=== PATIENT | male | born 1955 | race African-American/Black ===

== ENCOUNTER 2017-05-28 09:40 | Emergency (ER) | payer MEDICARE ==
[2017-05-28] MEDS ORDERED: IV NORMAL SALINE 1,000ML 1,000 ML IV SCH (09:57)
[2017-05-28] MEDS ORDERED: ONDANSETRON PF 4 MG/2 ML VIAL. IV ONE (10:00)
[2017-05-28] MEDS ORDERED: FAMOTIDINE 20 MG/2 ML VIAL IVP ONE (10:00)
--- NOTE | 2017-05-28 10:13 | PHYS DOC ---
Past History Past Medical History: CVA, Diabetes Additional Past Medical Histor: ulcerative colitis Adult General Chief Complaint Chief Complaint: NAUSEA/VOMITING/DIARRHEA HPI HPI Patient is a 62 year old male who presents with nausea and vomiting. Patient was brought to the emergency department from his half-way due to his symptoms. Patient's symptoms have been present starting today. The patient has history of CVA with right-sided hemiplegia and is unable to provide history due to aphasia as a result of his CVA. Patient has been running fever per half-way. Patient has not received any medications for symptoms. Patient has had numerous episodes of vomiting since breakfast this morning. Review of Systems Review of Systems Unable to obtain from patient due to aphasia Current Medications Current Medications Current Medications Medications (Trade) Dose Ordered Sig/Joselito Start Time Stop Time Status Last Admin Dose Admin Famotidine (Pepcid) 20 mg 1X ONCE 05/28/17 10:00 05/28/17 10:01 UNV Ondansetron HCl (Zofran) 4 mg 1X ONCE 05/28/17 10:00 05/28/17 10:01 UNV Sodium Chloride 1,000 ml @ 1,000 mls/hr Q1H 05/28/17 09:57 05/28/17 10:56 UNV Allergies Allergies Allergies Coded Allergies Type Severity Reaction Last Updated Verified No Known Drug Allergies 05/28/17 No Physical Exam Physical Exam Constitutional: Alert, febrile, aphasic, appears ill. [] HENT: Normocephalic, atraumatic, bilateral external ears normal, oropharynx moist, no oral exudates, nose normal. [] Eyes: PERRLA, EOMI, conjunctiva normal, no discharge. [] Neck: Normal range of motion, no tenderness, supple, no stridor. [] Cardiovascular:Heart rate regular rhythm, no murmur [] Lungs & Thorax: Bilateral breath sounds clear to auscultation [] Abdomen: Bowel sounds normal, soft, no tenderness, no masses, no pulsatile masses. [] Skin: Warm, dry, no erythema, no rash. [] Back: No tenderness, no CVA tenderness. [] Extremities: No tenderness, no cyanosis, no clubbing, ROM intact, no edema. [] Neurologic: Alert, afebrile, right-sided hemiplegia, follows commands. [] Current Patient Data Vital Signs Vital Signs Date Time Temp Pulse Resp B/P (MAP) Pulse Ox O2 Delivery O2 Flow Rate FiO2 05/28/17 10:05 99.3 94 18 94 Room Air Lab Results Laboratory Tests Test 05/28/17 10:12 White Blood Count 11.3 x10^3/uL Red Blood Count 1.27 x10^6/uL Hemoglobin 4.1 g/dL Hematocrit 12.5 % Mean Corpuscular Volume 99 fL Mean Corpuscular Hemoglobin 32 pg Mean Corpuscular Hemoglobin Concent 33 g/dL Red Cell Distribution Width 23.6 % Platelet Count 234 x10^3/uL Neutrophils (%) (Auto) 74 % Lymphocytes (%) (Auto) 18 % Monocytes (%) (Auto) 7 % Eosinophils (%) (Auto) 0 % Basophils (%) (Auto) 1 % Neutrophils # (Auto) 8.4 x10^3uL Lymphocytes # (Auto) 2.1 x10^3/uL Monocytes # (Auto) 0.8 x10^3/uL Eosinophils # (Auto) 0.0 x10^3/uL Basophils # (Auto) 0.1 x10^3/uL Sodium Level 145 mmol/L Potassium Level 3.9 mmol/L Chloride Level 108 mmol/L Carbon Dioxide Level 28 mmol/L Anion Gap 9 Blood Urea Nitrogen 77 mg/dL Creatinine 1.8 mg/dL Estimated GFR (Cockcroft-Gault) 46.2 BUN/Creatinine Ratio 43 Glucose Level 240 mg/dL Lactic Acid Level 1.9 mmol/L Calcium Level 8.5 mg/dL Total Bilirubin 0.4 mg/dL Aspartate Amino Transf (AST/SGOT) 28 U/L Alanine Aminotransferase (ALT/SGPT) 32 U/L Alkaline Phosphatase 49 U/L Total Protein 5.8 g/dL Albumin 3.2 g/dL Albumin/Globulin Ratio 1.2 Lipase 98 U/L Current Medications Medications (Trade) Dose Ordered Sig/Joselito Route PRN Reason Start Time Stop Time Status Last Admin Dose Admin Sodium Chloride 1,000 ml @ 1,000 mls/hr Q1H IV 05/28/17 09:57 05/28/17 11:32 DC 05/28/17 09:57 Ondansetron HCl (Zofran) 4 mg 1X ONCE IV 05/28/17 10:00 05/28/17 11:32 DC 05/28/17 10:00 Famotidine (Pepcid) 20 mg 1X ONCE IVP 05/28/17 10:00 05/28/17 11:32 DC 05/28/17 10:00 EKG EKG Interpreted by me: Heart rate 91, sinus rhythm, right bundle branch block, no acute ST/T-wave abnormalities present[] Radiology/Procedures Radiology/Procedures [address] [address] IMAGING REPORT Signed PATIENT: ÁNGEL JONES ACCOUNT: [id number] : 1955 LOCATION: ER AGE: 62 SEX: M EXAM STATUS: REG ER ORD. PHYSICIAN: NATACHA SAMANIEGO MD REASON: abdominal pain, vomiting PROCEDURE: CT ABDOMEN PELVIS WO CONTRAST Examination: CT of the abdomen pelvis without contrast History: History of abdominal pain, vomiting, anemia. Comparison: None available Technique: Axial CT images of the abdomen pelvis were performed without contrast. Coronal and sagittal reformats are performed. PQRS Compliance Statement: One or more of the following individualized dose reduction techniques were utilized for this examination: 1. Automated exposure control 2. Adjustment of the mA and/or kV according to patient size 3. Use of iterative reconstruction technique. Findings: The visualized bibasal lungs grossly appears unremarkable. No evidence of free air identified in the abdomen. The visualized noncontrasted liver, spleen, adrenals grossly appears unremarkable. The gallbladder is mildly distended. The stomach is mildly distended. The visualized pancreas grossly appears unremarkable. The small bowel is nondilated. The appendix is normal. Feces and gas noted in the colon throughout. The urinary bladder is mildly distended. No evidence of intrarenal collecting system calculus or hydronephrosis. There is minimal left perinephric fat stranding identified. Moderate aortic atherosclerosis. The infrarenal abdominal aorta measures 3.3 cm in transverse dimension likely mild focal ectasia. Mild aneurysmal change of the left common iliac artery is identified measuring 2.2 cm in diameter. Moderate degenerative changes identified in the visualized thoracal lumbar spine. Impression: 1. Minimal nonspecific perinephric fat stranding identified about the left kidney. Nephritis is not completely excluded however considered less likely. Recommend correlation with urine analysis. 2. Moderate amount of stool identified in the rectum. 3. Mild aneurysmal change left common iliac artery. Focal ectasia infrarenal abdominal aorta. DICTATED AND SIGNED BY: KATYA CRENSHAW MD DATE: 05/28/17 1116 CC: NATACHA SAMANIEGO MD; SAMMI DRAPER MD ~ [place] [address] IMAGING REPORT Signed PATIENT: ÁNGEL JONES ACCOUNT: [id number] : 1955 LOCATION: ER AGE: 62 SEX: M EXAM STATUS: REG ER ORD. PHYSICIAN: NATACHA SAMANIEGO MD REASON: abdominal pain, vomiting PROCEDURE: ACUTE ABDOMEN SERIES EXAM: Two view abdomen with one view chest HISTORY: Abdominal pain and vomiting. COMPARISON: 10/10/2011. FINDINGS: A frontal view of the chest and supine/upright views of the abdomen are obtained. There are no confluent infiltrates. There is no pneumothorax or pleural effusion. The heart is mildly enlarged. There are atherosclerotic calcifications of the aorta. There is no pneumoperitoneum. There are no distended small bowel loops or significant air-fluid levels. There is gas distally. Lumbar degenerative disc disease is moderate. Hip osteoarthritis is mild on the right greater than left. IMPRESSION: 1. No confluent infiltrates. Mild cardiomegaly. 2. No evidence of obstruction. DICTATED AND SIGNED BY: GARY SMITH MD DATE: 05/28/17 1046 CC: NATACHA SAMANIEGO MD; SAMMI DRAPER MD ~ [] Course & Med Decision Making Course & Med Decision Making Pertinent Labs and Imaging studies reviewed. (See chart for details) The patient started on IV fluids, Zofran, and Pepcid in the emergency department. The patient was found to have a critically low hemoglobin level and started on crossmatched packed red blood cells in the emergency department. The patient's x-ray on my evaluation shows findings consistent with a possible sigmoid volvulus as the patient has a loop of distended large bowel with a coffee lundberg appearance. The CT scan also shows the same appearance though no comment is made specifically to this finding. Due to potential for sigmoid volvulus, the patient will need admission to a facility with both gastroenterology and general surgery capabilities. I spoke with Dr. Christie, hospitalist at [facility], who has agreed to accept care of patient in transfer. I also spoke with Dr. Oliva of general surgery who agreed to consult on patient in hospital. An additional consult was made to Dr. Biggs of gastroenterology to follow with patient in hospital. Patient will be transferred by [facility]. Dragon Disclaimer Dragon Disclaimer This chart was dictated in whole or in part using Voice Recognition software in a busy, high-work load, and often noisy Emergency Department environment. It may contain unintended and wholly unrecognized errors or omissions. Departure Departure: Impression: Primary Impression: Acute renal failure Additional Impressions: Nausea and vomiting Abdominal pain Symptomatic anemia History of CVA (cerebrovascular accident) Type 2 diabetes mellitus Disposition: SHT-TRM HOSP Condition: GUARDED Referrals: SAMMI DRAPER MD (PCP) Problem Qualifiers Primary Impression: Acute renal failure Acute renal failure type: unspecified Qualified Codes: N17.9 - Acute kidney failure, unspecified Additional Impressions: Nausea and vomiting Vomiting type: unspecified Vomiting Intractability: unspecified Qualified Codes: R11.2 - Nausea with vomiting, unspecified Abdominal pain Abdominal location: generalized Qualified Codes: R10.84 - Generalized abdominal pain Type 2 diabetes mellitus Diabetes mellitus complication status: with hyperglycemia Diabetes mellitus longterm insulin use: unspecified terminal carman insulin use status Qualified Codes: E11.65 - Type 2 diabetes mellitus with hyperglycemia NATACHA SAMANIEGO MD May 28, 2017 10:13
[2017-05-28 10:43] LABS: ALBUMIN 3.2 g/dL (3.4-5.0); ALBUMIN/GLOBULIN RATIO 1.2 (1.0-1.7); CALCIUM 8.5 mg/dL (8.5-10.1); CREATININE 1.8 mg/dL (0.7-1.3); GFR 46.2; POTASSIUM 3.9 mmol/L (3.5-5.1); TOTAL BILIRUBIN 0.4 mg/dL (0.2-1.0); TOTAL PROTEIN 5.8 g/dL (6.4-8.2)
[2017-05-28 10:49] LABS: BASO # 0.1 x10^3/uL (0.0-0.2); BASO % 1 % (0-3); EOS % 0 % (0-3); LYMPH # 2.1 x10^3/uL (1.0-4.8); LYMPH % 18 % (24-48); MEAN CORPUSCULAR HEMOGLOBIN 32 pg (25-35); MEAN CORPUSCULAR HGB CONC 33 g/dL (31-37); MEAN CORPUSCULAR VOLUME 99 fL (79-100); MONO # 0.8 x10^3/uL (0.0-1.1); MONO % 7 % (0-9); NEUT # 8.4 x10^3uL (1.8-7.7); NEUT % 74 % (31-73); PLATELET COUNT 234 x10^3/uL (140-400); RED BLOOD COUNT 1.27 x10^6/uL (4.30-5.70); RED CELL DISTRIBUTION WIDTH 23.6 % (11.5-14.5)
--- NOTE | 2017-05-28 10:50 | RAD ---
EXAM: Two view abdomen with one view chest HISTORY: Abdominal pain and vomiting. COMPARISON: 10/10/2011. FINDINGS: A frontal view of the chest and supine/upright views of the abdomen are obtained. There are no confluent infiltrates. There is no pneumothorax or pleural effusion. The heart is mildly enlarged. There are atherosclerotic calcifications of the aorta. There is no pneumoperitoneum. There are no distended small bowel loops or significant air-fluid levels. There is gas distally. Lumbar degenerative disc disease is moderate. Hip osteoarthritis is mild on the right greater than left. IMPRESSION: 1. No confluent infiltrates. Mild cardiomegaly. 2. No evidence of obstruction.
[2017-05-28 10:53] LABS: HEMATOCRIT 12.5 % (39.0-53.0); HEMOGLOBIN 4.1 g/dL (13.0-17.5); WHITE BLOOD COUNT 11.3 x10^3/uL (4.0-11.0)
--- NOTE | 2017-05-28 11:28 | RAD ---
Examination: CT of the abdomen pelvis without contrast History: History of abdominal pain, vomiting, anemia. Comparison: None available Technique: Axial CT images of the abdomen pelvis were performed without contrast. Coronal and sagittal reformats are performed. PQRS Compliance Statement: One or more of the following individualized dose reduction techniques were utilized for this examination: 1. Automated exposure control 2. Adjustment of the mA and/or kV according to patient size 3. Use of iterative reconstruction technique. Findings: The visualized bibasal lungs grossly appears unremarkable. No evidence of free air identified in the abdomen. The visualized noncontrasted liver, spleen, adrenals grossly appears unremarkable. The gallbladder is mildly distended. The stomach is mildly distended. The visualized pancreas grossly appears unremarkable. The small bowel is nondilated. The appendix is normal. Feces and gas noted in the colon throughout. The urinary bladder is mildly distended. No evidence of intrarenal collecting system calculus or hydronephrosis. There is minimal left perinephric fat stranding identified. Moderate aortic atherosclerosis. The infrarenal abdominal aorta measures 3.3 cm in transverse dimension likely mild focal ectasia. Mild aneurysmal change of the left common iliac artery is identified measuring 2.2 cm in diameter. Moderate degenerative changes identified in the visualized thoracal lumbar spine. Impression: 1. Minimal nonspecific perinephric fat stranding identified about the left kidney. Nephritis is not completely excluded however considered less likely. Recommend correlation with urine analysis. 2. Moderate amount of stool identified in the rectum. 3. Mild aneurysmal change left common iliac artery. Focal ectasia infrarenal abdominal aorta.
[2017-05-28 12:38] VITALS: BP 117/41
[2017-05-28 12:48] LABS: FECAL OB PT NEGATIVE (NEG)
[2017-05-28 12:53] VITALS: BP 131/69
[2017-05-28 13:08] VITALS: BP 129/79
[2017-05-28 13:33] VITALS: BP 129/79
[2017-05-28 13:37] VITALS: BP 121/60
--- NOTE | 2017-05-28 13:38 | EKG ---
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
[2017-05-28 13:51] LABS: BACTERIA,URINE 0 /HPF (0-FEW); BILIRUBIN,URINE NEG (NEG); CLARITY,URINE HAZY; COLOR,URINE YELLOW; GLUCOSE,URINE NEG (NEG); NITRITE,URINE NEG (NEG); RBC CASTS,URINE OCC /HPF; SQUAMOUS EPITHELIAL CELL,UR OCC /LPF; UROBILINOGEN,URINE 0.2 mg/dL (0.2 mg/dL); WBC,URINE 0 /HPF (0-4)
[2017-05-28 14:00] LABS: % BANDS 5 % (0-9); % LYMPHS 17 % (24-48); % MONOS 3 % (0-10); % SEGS 75 % (35-66); NUCLEATED RBC 26; PLATELET CLUMP PRESENT; PLT ESTIMATE ADEQUATE (ADEQUATE)
[2017-05-28 14:01] LABS: ANISOCYTOSIS MARKED; MICROCYTOSIS MOD; POLYCHROMASIA SLIGHT
[2017-05-28 14:02] LABS: OVALOCYTES FEW; SPHEROCYTES OCC
== END 2017-05-28 13:49 | disposition short-term general hospital (02) ==
LOC: ER 09:40
DX: N17.9 Acute kidney failure, unspecified (principal); R10.84 Generalized abdominal pain; E11.65 Type 2 diabetes mellitus with hyperglycemia; R11.2 Nausea with vomiting, unspecified; Z86.73 Personal history of transient ischemic attack (TIA), and cerebral infarction without residual deficits
CPT/HCPCS: 36415; 74022; 74176; 80053; 81001; 82274; 83605; 83690; 85007; 85025; 86850; 86900; 86901; 86920; 87040; 93005; 96361; 96374; 96375; 99285; J2405; P9016; S0028; J7030

== ENCOUNTER 2021-01-19 19:46 | Inpatient (IN) | payer MEDICARE, MEDICAID ==
[~2021-01-19] VITALS: Ht 188 cm; Wt 97.3 kg
[2021-01-19 21:39] LABS: BASO % 1 % (0-3); EOS # 0.1 x10^3/uL (0.0-0.7); EOS % 1 % (0-3); HEMATOCRIT 35.2 % (39.0-53.0); HEMOGLOBIN 11.5 g/dL (13.0-17.5); LYMPH # 0.9 x10^3/uL (1.0-4.8); LYMPH % 14 % (24-48); MEAN CORPUSCULAR HEMOGLOBIN 28 pg (25-35); MEAN CORPUSCULAR HGB CONC 33 g/dL (31-37); MEAN CORPUSCULAR VOLUME 84 fL (79-100); MONO # 0.3 x10^3/uL (0.0-1.1); MONO % 6 % (0-9); NEUT # 4.8 x10^3uL (1.8-7.7); NEUT % 78 % (31-73); PLATELET COUNT 166 x10^3/uL (140-400); RED BLOOD COUNT 4.17 x10^6/uL (4.30-5.70); RED CELL DISTRIBUTION WIDTH 18.4 % (11.5-14.5); WHITE BLOOD COUNT 6.1 x10^3/uL (4.0-11.0)
[2021-01-19 21:41] LABS: CALCIUM 8.5 mg/dL (8.5-10.1); CREATININE 1.4 mg/dL (0.7-1.3); GFR 61.2
--- NOTE | 2021-01-19 21:53 | PHYS DOC ---
Past History Past Medical History: CHF, CVA, Diabetes, High Cholesterol, UTI Additional Past Medical Histor: ulcerative colitis (ROCKY LARA APRN) Past Surgical History: No Surgical History (ROCKY LARA APRN) Alcohol Use: None Drug Use: None (ROCKY LARA APRN) Adult General Chief Complaint Chief Complaint: SHORTNESS OF BREATH HPI HPI Patient is a 65-year-old male presents to the emergency department from [facility] with a chief complaint of low O2 sat. Patient states that he has been short of breath for the past week. Patient denies any chest pains. Patient denies any nausea vomiting shortness of breath or abdominal pains. Patient has a history of acute on chronic respiratory failure with hypoxia, old CVA with expressive aphasia and right-sided extremity deficits with muscle contractures, type 2 diabetes, hyperlipidemia, GERD, combined systolic and diastolic heart failure, chronic urinary tract infections, essential hypertension, major depressive disorder, ulcerative colitis, lack of coord ination. Patient denies any other physical complaints or physical concerns (ROCKY LARA APRN) Review of Systems Review of Systems 14 body systems of review of systems have been reviewed. See HPI for pertinent positives and negative responses, otherwise all other systems are negative, nonpertinent or noncontributory. (ROCKY LARA APRN) Allergies Allergies Allergies Coded Allergies Type Severity Reaction Last Updated Verified No Known Drug Allergies 05/28/17 No (ROCKY LARA APRN) Physical Exam Physical Exam Constitutional: Well developed, well nourished, no acute distress, non-toxic appearance. 65-year-old male no apparent distress. Patient is in no respiratory distress. HENT: Normocephalic, atraumatic, bilateral external ears normal, oropharynx moist, no oral exudates, nose normal. Eyes: PERRLA, EOMI, conjunctiva normal, no discharge. Neck: Normal range of motion, no tenderness, supple, no stridor. Cardiovascular:Heart rate regular rhythm, no murmur. Lungs & Thorax: Bilateral breath sounds clear to auscultation no adventitious lung sounds of the upper lobes, diminished bilateral lower lobes. Abdomen: Bowel sounds normal, soft, no tenderness, no masses, no pulsatile masses. Skin: Warm, dry, no erythema, no rash. Back: No tenderness, no CVA tenderness. Extremities: No tenderness, no cyanosis, no clubbing, ROM intact, no edema. E xtremity contractures to the right upper and lower extremity. Neurologic: Alert and oriented X 3, normal motor function, normal sensory function, no focal deficits noted. Patient answers 1-2 word sentences related to history of aphasia. Psychologic: Affect normal, judgement normal, mood normal. (ROCKY LARA APRN) Current Patient Data Vital Signs Vital Signs Date Time Temp Pulse Resp B/P (MAP) Pulse Ox O2 Delivery O2 Flow Rate FiO2 01/19/21 19:48 97.5 79 18 154/85 (108) 95 Room Air Lab Results Laboratory Tests Test 01/19/21 21:05 White Blood Count 6.1 x10^3/uL (4.0-11.0) Red Blood Count 4.17 x10^6/uL (4.30-5.70) L Hemoglobin 11.5 g/dL (13.0-17.5) L Hematocrit 35.2 % (39.0-53.0) L Mean Corpuscular Volume 84 fL (79-100) Mean Corpuscular Hemoglobin 28 pg (25-35) Mean Corpuscular Hemoglobin Concent 33 g/dL (31-37) Red Cell Distribution Width 18.4 % (11.5-14.5) H Platelet Count 166 x10^3/uL (140-400) Neutrophils (%) (Auto) 78 % (31-73) H Lymphocytes (%) (Auto) 14 % (24-48) L Monocytes (%) (Auto) 6 % (0-9) Eosinophils (%) (Auto) 1 % (0-3) Basophils (%) (Auto) 1 % (0-3) Neutrophils # (Auto) 4.8 x10^3uL (1.8-7.7) Lymphocytes # (Auto) 0.9 x10^3/uL (1.0-4.8) L Monocytes # (Auto) 0.3 x10^3/uL (0.0-1.1) Eosinophils # (Auto) 0.1 x10^3/uL (0.0-0.7) Basophils # (Auto) 0.0 x10^3/uL (0.0-0.2) D-Dimer (Meli) 0.78 mg/L (0.00-0.50) H Sodium Level 143 mmol/L (136-145) Potassium Level 4.0 mmol/L (3.5-5.1) Chloride Level 105 mmol/L (98-107) Carbon Dioxide Level 29 mmol/L (21-32) Anion Gap 9 (6-14) Blood Urea Nitrogen 18 mg/dL (8-26) Creatinine 1.4 mg/dL (0.7-1.3) H Estimated GFR (Cockcroft-Gault) 61.2 BUN/Creatinine Ratio 13 (6-20) Glucose Level 161 mg/dL (70-99) H Lactic Acid Level 2.3 mmol/L (0.4-2.0) H Calcium Level 8.5 mg/dL (8.5-10.1) Total Bilirubin Pending Aspartate Amino Transferase (AST) Pending Alanine Aminotransferase (ALT) Pending Alkaline Phosphatase Pending Troponin I Quantitative < 0.017 ng/mL (0-0.055) Total Protein Pending Albumin Pending Albumin/Globulin Ratio Pending (ROCKY LARA APRN) EKG EKG EKG performed at 2157 by house respiratory therapy staff shows a heart rate of 82 bpm, no discernible P wave, QTc interval 0.464, no acute STEMI, no ischemia, no ACS appreciated, EKG interpreted by ED attending physician Dr. Hess. (ROCKY LARA APRN) Radiology/Procedures Radiology/Procedures PATIENT: ÁNGEL JONES ACCOUNT: [id number] : 1955 LOCATION: ER AGE: 65 SEX: M EXAM STATUS: REG ER ORD. PHYSICIAN: ROCKY LARA APRN REASON: SHORT OF BREATH PROCEDURE: CHEST AP ONLY AP chest x-ray HISTORY: Shortness of breath. COMPARISON: Chest x-ray May 28, 2017 FINDINGS: Marked enlarged cardiac silhouette has increased in size the prior x- rays, this may indicate progressive cardiomegaly, or cardiomegaly with sup erimposed pericardial effusion. No pneumothorax. Prominent epicardial fat pads. There may be a tiny left pleural effusion along the diaphragm blunting the angle. There are bilateral lower lobe and right middle lobe opacities and a mild right pleural effusion obscuring the diaphragm. IMPRESSION: 1. Mild right layering left pleural effusion. Opacities of the lung bases may be pulmonary edema. Superimposed pneumonia not excluded. 2. Marked enlarged cardiac silhouette has increased in size from x-rays in 2017, this could indicate progressive cardiomegaly with dilated cardiomyopathy since that time, versus a superimposed pericardial effusion. Electronically signed by: Suzanne Sawyer MD (01/19/2021 10:01 PM) [employer] [employer] DICTATED AND SIGNED BY: SUZANNE SAWYER MD DATE: 01/19/212157 CC: ROCKY LARA APRN; SAMMI DRAPER MD ~MTH0 0 (ROCKY LARA APRN) Heart Score C/O Chest Pain: No Risk Factors: Risk Factors: DM, Current or recent (<one month) smoker, HTN, HLP, family history of CAD, obesity. Risk Scores: Risk Factors: DM, Current or recent (<one month) smoker, HTN, HLP, family history of CAD, obesity. (ROCKY LARA APRN) Course & Med Decision Making Course & Med Decision Making Pertinent Labs and Imaging studies reviewed. (See chart for details) 65-year-old male, vital signs reviewed, presents emergency department chief complaint of shortness of breath without cough or fever for the past week. [facility] Physical examination concerning for possible infectious pulmonary process, a chest x-ray, CBC, CMP, EKG and troponin ordered. Patient's lactic acid elevated at 2.3, chest x-ray concerning for pneumonia, will order blood cultures x2, 1 g Rocephin IV, 500 mg azithromycin IV. Patient's D-dimer elevated at 0.78, will order CT angio chest to rule out pulmonary emboli. ABG ordered. End of shift report given to ED attending physician Dr. Hess, Dr. Hess has assumed patient care at this time. (ROCKY LARA APRN) Course & Med Decision Making Patient care handed off to me at checkout. Patient with a week of shortness of breath. EKG with a rate of 82, QRS 112, QTc of 464, no STEMI but abnormal. Creatinine elevated. D-dimer elevated. Lactate with mild elevation. CT of the chest with left pleural effusion with probable combination pulmonary edema and superimposed pneumonia with cardiomegaly. Bedside ultrasound showing cardiomegaly with no significant pericardial effusion. Discussed all findings with patient and recommended admission to the hospital for continued evaluation and treatment of his pneumonia and new oxygen requirement. Patient grateful, verbalized understanding and agreed with plan of admission. (CHERELLE HESS MD) Dragon Disclaimer Dragon Disclaimer This electronic medical record was generated, in whole or in part, using a voice recognition dictation system. (ROCKY LARA APRN) Departure Departure: Impression: Primary Impression: Shortness of breath Additional Impressions: Pneumonia Pleural effusion JONI (acute kidney injury) Disposition: 09 ADMITTED INPATIENT Admitting Physician: Shola Amaya (CHERELLE HESS MD) Condition: IMPROVED Referrals: SAMMI DRAPER MD (PCP) Problem Qualifiers ROCKY LARA APRN January 19, 2021 21:53 CHERELLE HESS MD January 19, 2021 23:18
[2021-01-19 21:55] LABS: ALBUMIN 3.5 g/dL (3.4-5.0); ALBUMIN/GLOBULIN RATIO 0.9 (1.0-1.7); TOTAL PROTEIN 7.3 g/dL (6.4-8.2)
--- NOTE | 2021-01-19 22:03 | RAD ---
AP chest x-ray HISTORY: Shortness of breath. COMPARISON: Chest x-ray May 28, 2017 FINDINGS: Marked enlarged cardiac silhouette has increased in size the prior x-rays, this may indicat e progressive cardiomegaly, or cardiomegaly with superimposed pericardial effusion. No pneumothorax. Prominent epicardial fat pads. There may be a tiny left pleural effusion along the diaphragm blunting the angle. There are bilateral lower lobe and right middle lobe opacities and a mild right pleural e ffusion obscuring the diaphragm. IMPRESSION: 1. Mild right layering left pleural effusion. Opacities of the lung bases may be pulmonary edema. Sup erimposed pneumonia not excluded. 2. Marked enlarged cardiac silhouette has increased in size from x-rays in 2017, this could indicate progressive cardiomegaly with dilated cardiomyopathy since that time, versus a superimposed pericardi al effusion. Electronically signed by: Aron Sawyer MD (01/19/2021 10:01 PM) [facility]
[2021-01-19 22:19] LABS: BGAS PH 7.36 (7.35-7.46)
[2021-01-19] MEDS ORDERED: AZITHROMYCIN 500 MG in IV NORMAL SALINE 250ML 250 ML IV ONE (22:30)
[2021-01-19] MEDS ORDERED: CONTRAST GIVEN. MC PRN (22:30)
[2021-01-19] MEDS ORDERED: IV NORMAL SALINE 250ML 250 ML ONE (22:42)
[2021-01-19] MEDS ORDERED: cefTRIAXone SODIUM 1 GM VIAL ONE (22:42)
[2021-01-19] MEDS ORDERED: IV NORMAL SALINE 50ML 50 ML ONE (22:42)
[2021-01-19] MEDS ORDERED: AZITHROMYCIN 500 MG VIAL. IV ONE (22:42)
[2021-01-19] MEDS ORDERED: IOHEXOL 350 MG/ML 100 ML VIAL. IV ONE (23:00)
--- NOTE | 2021-01-19 23:04 | RAD ---
Exam: CT of chest with contrast INDICATION: Shortness of breath, elevated d-dimer TECHNIQUE: Sequential axial images through the chest obtained following the administration of 100 mL of Omni 350 IV contrast. Sagittal and coronal reformatted images were reconstructed from the axial da ta and reviewed. 3-D reformatted images were reconstructed from the axial data and reviewed. Exposure: One or more of the following in the visualized dose reduction techniques were utilized for this examination: 1. Automated exposure control 2. Adjustment of the MA and/or KV according to patient size 3. Use of iterative of reconstructive technique Comparisons: None FINDINGS: Visualized portions of the thyroid are unremarkable. No enlarged mediastinal lymph nodes are identifi ed. Heart is enlarged. Small pericardial effusion. Aneurysmal dilatation of the ascending aorta measuring up to 4.2 cm in diameter. Pulmonary artery is not enlarged. No pulmonary embolus identified within t he main, lobar or segmental pulmonary arteries. Evaluation in the right lower lobe is limited seconda ry to extensive atelectasis. Airways are patent. Mild bronchial thickening noted. No consolidation or pneumothorax. There is a moderate-sized right pleural effusion causing near complete atelectasis of the right lower lobe. There is a small left pleural effusion also noted. Visualized upper abdomen is unremarkable. No suspicious osseous lesions or acute fractures. IMPRESSION: 1. No pulmonary embolus identified within the main, lobar or segmental pulmonary arteries. 2. Mild aneurysmal dilatation of the ascending aorta measuring up to 4.2 cm in diameter. 3. Moderate right and small left pleural effusion with adjacent atelectasis. Electronically signed by: Betito Hoyt MD (01/19/2021 11:02 PM) [facility]
--- NOTE | 2021-01-20 00:35 | NUR ---
Pt admitted to room 117 via EMS from ER. Pt presents alert and oriented to self only. Pt able to answer some questions but struggles from expressive aphasia secondary to stroke, so communication is difficult at times. A full assessment completed and history obtained via halfway records. Verified with pts facility that he is wheelchair bound, diet-regular, code status-DNR and that he has had both of his COVID vaccines. Facility also states that they were unable to reach his contact center assistant-Madeleine Love, to notify her that he was transported to the hospital. Will attempt to reach in am. Oriented pt to nurse, call light, unit and plan of care. V/U stated. Bed Alarm on. IV Left AC S.L. O2@2L NC. Will monitor.
[2021-01-20 00:46] VITALS: BP 110/72
[2021-01-20] MEDS ORDERED: CARV12.53 PO (01:08)
[2021-01-20] MEDS ORDERED: PANT20TA58 PO (01:08)
[2021-01-20] MEDS ORDERED: INSU100I17 SQ (01:08)
[2021-01-20] MEDS ORDERED: FURO40TA4 PO (01:08)
[2021-01-20] MEDS ORDERED: MAGN24003 PO (01:08)
[2021-01-20] MEDS ORDERED: SERT50TA PO (01:08)
[2021-01-20] MEDS ORDERED: ACET325T9 PO (01:08)
[2021-01-20] MEDS ORDERED: ATOR40TA59 PO (01:08)
[2021-01-20] MEDS ORDERED: GLUC1KIT IM (01:08)
[2021-01-20] MEDS ORDERED: APIX5TAB3 PO (01:08)
[2021-01-20] MEDS ORDERED: INSU100V13 SQ (01:08)
[2021-01-20] MEDS ORDERED: FLUT1AER IH (01:08)
[2021-01-20] MEDS ORDERED: MAGN400T5 PO (01:08)
[2021-01-20] MEDS ORDERED: AMLO-187 PO (01:08)
[2021-01-20] MEDS ORDERED: LOPE2TAB27 PO (01:08)
[2021-01-20] MEDS ORDERED: MULT-460 PO (01:08)
[2021-01-20] MEDS ORDERED: FERR325T14 PO (01:08)
[2021-01-20] MEDS ORDERED: METF10007 PO (01:08)
--- NOTE | 2021-01-20 01:59 | EKG ---
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
[2021-01-20 05:36] VITALS: BP 123/76
[2021-01-20 10:31] VITALS: BP 128/75
[2021-01-20 15:16] VITALS: BP 124/84
[2021-01-20] MEDS ORDERED: ACETAMINOPHEN 325 MG TABLET PO PRN (16:00)
[2021-01-20] MEDS ORDERED: FUROSEMIDE 40 MG/4 ML VIAL IVP ONE (16:15)
[2021-01-20] MEDS ORDERED: MAGNESIUM HYDROXIDE 2,400 MG/30 ML ORAL.SUSP. PO PRN (16:30)
[2021-01-20] MEDS ORDERED: LOPERAMIDE 2 MG CAPSULE PO PRN (16:30)
[2021-01-20] MEDS: INSULIN LISPRO 300 UNITS/3 ML VIAL. SQ SCH (17:00)
--- NOTE | 2021-01-20 17:00 | HP ---
HISTORY OF PRESENT ILLNESS: The patient is a 65-year-old -[place] male patient, resident at [facility], who was brought to the emergency room with a complaint of hypoxia. The patient stated that he has been short of breath for the past week. He denied any chest pain. The patient denies any nausea or vomiting. He has a history of [id number] respiratory failure with hypoxia. He has had right-sided hemiplegia and expressive aphasia with muscle contractures, type 2 diabetes, hyperlipidemia, and gastroesophageal reflux disease. He was extensively investigated in the emergency room and has had lab work as well as imaging studies. His white cell count was normal at 6000. Blood gases showed a pH of 7.36, a pCO2 of 50, a pO2 of 22. However, his chemistry showed mild elevation of the serum creatinine. His D-dimer was high at 0.78. His chest x-ray showed that he has mild right layering and left pleural effusion. Opacities at the lung bases may be pulmonary edema. Superimposed pneumonia cannot be excluded. He has a mildly enlarged cardiac silhouette and it has increased in size from x-rays of 2017. This could indicate progressive cardiomegaly with mild dilated cardiomyopathy since that time or superimposed pericardial effusion. His CT angio of the chest showed no pulmonary embolus identified within the main lobar or segmental pulmonary edema. There is mild aneurysmal dilatation of the ascending aorta measuring up to 4.2 cm in diameter. He has moderate right and small left side pleural effusion, adjacent atelectasis. The patient was admitted with diagnosis of pneumonia and bilateral pleural effusion. He was treated with ceftriaxone and Zithromax and was admitted for further evaluation and treatment. PAST MEDICAL HISTORY: Significant for hypertension, hyperlipidemia, type 2 diabetes, gastroesophageal reflux disease. 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 Has ulcerative colitis. PAST SURGICAL HISTORY: Unremarkable. ALLERGIES: He has no known drug allergies. FAMILY HISTORY: Noncontributory. SOCIAL HISTORY: He is currently a resident at [facility]. He does not smoke. Drank alcohol occasionally. Never used any drugs. MEDICATIONS: He is currently on the following medications: He is on ferrous sulfate 325 mg twice a day, apixaban 5 mg twice a day, atorvastatin calcium 40 mg at bedtime, carvedilol 12.5 mg twice a day, amlodipine 10 mg daily, acetaminophen 650 mg every 4 hours, sertraline 75 mg daily, furosemide 40 mg daily, Breo Ellipta 1 puff twice daily, magnesium oxide 400 mg twice a day, loperamide 2 mg twice a day, magnesium hydroxide, milk of magnesia 30 mL daily p.r.n. for constipation, Protonix 40 mg once a day, metformin 1000 mg twice a day and he is also on NovoLog insulin 8 units before meals and Levemir insulin 10 units at bedtime. He is on a glucagon human recombinant 1 mg intramuscular as needed for hypoglycemia. Multivitamin one tablet once a day. REVIEW OF SYSTEMS: As per history of present illness. PHYSICAL EXAMINATION: GENERAL: On arrival to the emergency room, he was somewhat pale, but no jaundice or cyanosis. No lymphadenopathy, no thyromegaly. No jugular venous distention. No limb edema. VITAL SIGNS: Heart rate was 79, blood pressure was 154/85, temperature 97.5, respiratory rate was 18, and her oxygen saturation was 95%. HEAD, EYES, EARS, NOSE, AND THROAT: Showed normocephalic, atraumatic. NECK: Supple. HEART: Showed normal first and second heart sounds. No gallop, rub, or murmur. CHEST: Clear to auscultation. No crepitation or rhonchi at least anteriorly. ABDOMEN: Distended, soft, nontender. NEUROLOGIC: He was awake and alert. All his cranial nerves intact. He has expressive aphasia and right-sided hemiplegia with flexion contraction of his both right upper and right lower extremity. LABORATORY DATA: His lab work on arrival showed a white cell count of 6100, hemoglobin 11.5, hematocrit 35, MCV 84, and platelet count of 166,000. His serum sodium is 143, potassium 4, chloride 105, bicarbonate 29, anion gap of 9, BUN 18, creatinine 1.4. Estimated GFR was 61 mL per minute. His glucose was 161. Lactic acid was 2.3, calcium was 8.5. Total bilirubin, AST, ALT, and alkaline phosphatase were normal. Total protein 7.3 and albumin was 3.5. His D-dimer was high at 0.78. Blood gases showed a pH of 7.36, a pCO2 of 50, pO2 of 22, bicarbonate 29, oxygen saturation was 96% on FiO2 of 21%. His chest x-ray showed mild right layering and left pleural effusion. Opacities at the lung bases may be representing pulmonary edema. Superimposed pneumonia is not excluded. He has markedly enlarged heart, mildly enlarged cardiac silhouette that has increased in size from x-rays in 2017. This could indicate progressive cardiomegaly with dilated cardiomyopathy since at that time, with perhaps superimposed pericardial effusion. His CT angio showed the patient has no pulmonary embolus identified within the main lobar or segmental pulmonary arteries. There is mild aneurysmal dilatation of the ascending aorta measuring up to 4.2 cm in diameter. The patient has moderate right and small left-sided pleural effusion with adjacent atelectasis. ASSESSMENT AND PLAN: In summary, this is a 65-year-old -[place] male patient who was admitted with acute hypoxic respiratory failure. The patient is known to have chronic obstructive pulmonary disease, bilateral interstitial infiltrate as well as bilateral pleural effusion that are suggestive of congestive heart failure. Other medical problems include type 2 diabetes mellitus, dyslipidemia, hypertension, history of cardiomyopathy with an ejection fraction of 25% and has had a stroke. 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 Probably part of his hypoxia is because of [id number]-flvprvy systolic congestive heart failure. JAMI RYAN: Duglas TID: [id number]
--- NOTE | 2021-01-20 17:32 | NUR ---
SHIFT NOTE Pt resting for most of the day. Pt is able to feed self and adjust in bed some but requires help with incontinence and full turning. Waiting med reconciliation and orders from Dr. Amaya. Will continue to monitor. TALI RN
[2021-01-20] MEDS: PIPERACILLIN/TAZOBACTAM 3.375 GM in IV NORMAL SALINE 50ML 50 ML IV SCH (17:50)
[2021-01-20 19:00] VITALS: BP 136/69
[2021-01-20] MEDS: APIXABAN 5 MG TABLET. PO SCH (21:00)
[2021-01-20] MEDS: MAGNESIUM OXIDE 400 MG TABLET PO SCH (21:00)
[2021-01-20] MEDS: ATORVASTATIN CALCIUM 20 MG TABLET PO SCH (21:00)
[2021-01-20] MEDS: PANTOPRAZOLE 40 MG TABLET. PO SCH (21:00)
[2021-01-20] MEDS: FERROUS SULFATE 325 MG TABLET. PO SCH (21:00)
[2021-01-20] MEDS: CARVEDILOL 12.5 MG TABLET PO SCH (21:00)
[2021-01-20] MEDS: INSULIN GLARGINE SYRINGE. SQ SCH (21:10)
[2021-01-20] MEDS: ALBUTEROL SULFATE 2.5 MG/3 ML NEBU. NEB SCH (21:45)
[2021-01-20] MEDS: BUDESONIDE 0.5 MG/2 ML NEBU NEB SCH (21:45)
[2021-01-20 22:31] VITALS: BP 140/86
[2021-01-20] MEDS ORDERED: GLUCAGON,HUMAN RECOMBINANT 1 MG KIT. IM PRN (23:45)
[2021-01-21] MEDS: PIPERACILLIN/TAZOBACTAM 3.375 GM in IV NORMAL SALINE 50ML 50 ML IV SCH ×4 (00:20→18:00)
[2021-01-21 05:41] VITALS: BP 117/74
[2021-01-21] MEDS: ALBUTEROL SULFATE 2.5 MG/3 ML NEBU. NEB SCH ×4 (05:52→20:08)
[2021-01-21 06:00] VITALS: BP 149/77
[2021-01-21 07:03] LABS: HEMATOCRIT 31.1 % (39.0-53.0); HEMOGLOBIN 10.3 g/dL (13.0-17.5); RED BLOOD COUNT 3.72 x10^6/uL (4.30-5.70); RED CELL DISTRIBUTION WIDTH 17.9 % (11.5-14.5); WHITE BLOOD COUNT 5.5 x10^3/uL (4.0-11.0)
[2021-01-21 07:28] LABS: ALBUMIN/GLOBULIN RATIO 0.9 (1.0-1.7); CALCIUM 8.3 mg/dL (8.5-10.1); CREATININE 1.4 mg/dL (0.7-1.3); POTASSIUM 3.3 mmol/L (3.5-5.1); TOTAL BILIRUBIN 0.9 mg/dL (0.2-1.0); TOTAL PROTEIN 6.5 g/dL (6.4-8.2)
[2021-01-21] MEDS: INSULIN LISPRO 300 UNITS/3 ML VIAL. SQ SCH ×3 (08:00→17:00)
--- NOTE | 2021-01-21 08:49 | PDOC2 ---
CARDIAC CONSULT DATE OF CONSULT DOS: DATE: 01/21/21 TIME: 08:21 REASON FOR CONSULT Reason for Consult CHF REFERRING PHYSICIAN Referring Physician Dr. Amaya SOURCE Source: Chart review, Patient HPI History of Present Illness This is a 66 yo male who presented from nursing facility secondary to low oxygen saturation. CXR with vascular congestion and pleural effusion. CTA without evidence of PE. Patient has history of CVA with right-sided weakness and expressive aphasia. Difficult to obtain history due to aphasia. Presently denies any dizziness, diaphoresis, chest pain, or nausea/vomiting. Does have a history of CMP with LVEF 20%. PAST MEDICAL HISTORY Cardiovascular: CHF, HTN, hyperipidemia Pulmonary: COPD CENTRAL NERVOUS SYSTEM: CVA GI: GERD, Other (UC) Psych: Depression Endocrine: Diabetes PAST SURGICAL HISTORY Past Surgical History: No pertinent history FAMILY HISTORY Family History: Family History Unknown SOCIAL HISTORY Smoke: No ALCOHOL: none Drugs: None Lives: Group Home CURRENT MEDICATIONS Current Medications Current Medications Ceftriaxone Sodium 1 gm/ Sodium Chloride 50 ml @ 100 mls/hr 1X ONCE IV Last administered on 01/19/21at 22:55; Start 01/19/21 at 22:30; Stop 01/20/21 at 16:06; Status DC Azithromycin 500 mg/Sodium Chloride 250 ml @ 250 mls/hr 1X ONCE IV Last administered on 01/19/21at 23:23; Start 01/19/21 at 22:30; Stop 01/20/21 at 16 :06; Status DC Iohexol (Omnipaque 350 Mg/ml) 100 ml 1X ONCE IV Last administered on 01/19/21at 22:39; Start 01/19/21 at 23:00; Stop 01/19/21 at 23:01; Status DC Info (Do NOT chart on this entry -- for MONITORING) 1 each PRN DAILY PRN MC SEE COMMENTS; Start 01/19/21 at 22:30; Stop 01/21/21 at 22:29 Sodium Chloride 250 ml @ As Directed STK-MED ONCE .ROUTE ; Start 01/19/21 at 22:42; Stop 01/19/21 at 22:42; Status DC Sodium Chloride 50 ml @ As Directed STK-MED ONCE .ROUTE ; Start 01/19/21 at 22:42; Stop 01/19/21 at 22:43; Status DC Azithromycin (Zithromax) 500 mg STK-MED ONCE IV ; Start 01/19/21 at 22:42; Stop 01/19/21 at 22:43; Status DC Ceftriaxone Sodium (Rocephin) 1 gm STK-MED ONCE .ROUTE ; Start 01/19/21 at 22:42; Stop 01/19/21 at 22:43; Status DC Acetaminophen (Tylenol) 650 mg PRN Q4HRS PRN PO MILD PAIN / TEMP > 100.3'F; Start 01/20/21 at 16:00 Amlodipine Besylate (Norvasc) 10 mg DAILY PO ; Start 01/21/21 at 09:00 Apixaban (Eliquis) 5 mg BID PO Last administered on 01/20/21at 21:00; Start 01/20/21 at 21:00 Carvedilol (Coreg) 12.5 mg BID PO Last administered on 01/20/21at 21:00; Start 01/20/21 at 21:00 Ferrous Sulfate (Feosol) 325 mg BID PO Last administered on 01/20/21at 21:00; Start 01/20/21 at 21:00 Magnesium Oxide (Magnesium Oxide) 400 mg BID PO Last administered on 01/20/21at 21:00; Start 01/20/21 at 21:00 Sertraline HCl (Zoloft) 75 mg DAILY PO ; Start 01/21/21 at 09:00 Atorvastatin Calcium (Lipitor) 40 mg QHS PO Last administered on 01/20/21at 21:00; Start 01/20/21 at 21:00 Non-Formulary Medication (Fluticasone/ Vilanterol (Breo Ellipta 100-25 Mcg Inh)) 1 puff DAILY IH ; Start 01/21/21 at 09:00; Status UNV Glucagon (Glucagen Kit) 1 mg 1X PRN PRN IM HYPOGLYCEMIA; Start 01/20/21 at 23:45 Insulin Human Lispro (HumaLOG) 8 units TIDWMEALS SQ ; Start 01/20/21 at 17:00 Insulin Glargine (Lantus Syringe) 10 unit QHS SQ Last administered on 01/20/21at 21:10; Start 01/20/21 at 21:00 Loperamide HCl (Imodium) 2 mg PRN BID PRN PO DIARRHEA; Start 01/20/21 at 16:30 Magnesium Hydroxide (Milk Of Magnesia) 2,400 mg PRN DAILY PRN PO CONSTIPATION; Start 01/20/21 at 16:30 Metformin HCl (Glucophage) 1,000 mg BIDWMEALS PO ; Start 01/22/21 at 08:00 Multivitamins/ Calcium (Thera-M Plus) 1 tab DAILY PO ; Start 01/21/21 at 09:00 Pantoprazole Sodium (Protonix) 40 mg HS PO Last administered on 01/20/21at 21:00; Start 01/20/21 at 21:00 Furosemide (Lasix) 40 mg 1X ONCE IVP Last administered on 01/20/21at 17:49; Start 01/20/21 at 16:15; Stop 01/20/21 at 16:16; Status DC Furosemide (Lasix) 40 mg DAILY IVP ; Start 01/21/21 at 09:00 Piperacillin Sod/ Tazobactam Sod 3.375 gm/Sodium Chloride 50 ml @ 100 mls/hr Q6HRS IV Last administered on 01/21/21at 06:10; Start 01/20/21 at 18:00 Albuterol Sulfate (Ventolin) 2.5 mg RTQID NEB Last administered on 01/21/21at 05:52; Start 01/20/21 at 20:00 Budesonide (Pulmicort) 0.5 mg RTBID NEB Last administered on 01/20/21at 21:45; Start 01/20/21 at 20:00 Active Scripts Active Reported Tylenol (Acetaminophen) 325 Mg Tablet 650 Mg PO PRN Q4HRS PRN LAST DOSE GIVEN: DATE: TIME: NEXT DOSE DUE: DATE: TIME: Multiple Vitamin (Multivitamin With Minerals) 1 Each Tablet 1 Tab PO DAILY LAST DOSE GIVEN: DATE: TIME: NEXT DOSE DUE: DATE: TIME: Zoloft (Sertraline Hcl) 50 Mg Tablet 75 Mg PO DAILY LAST DOSE GIVEN: DATE: TIME: NEXT DOSE DUE: DATE: TIME: Protonix (Pantoprazole Sodium) 20 Mg Tablet.dr 20 Mg PO HS LAST DOSE GIVEN: DATE: TIME: NEXT DOSE DUE: DATE: TIME: Novolog Flexpen (Insulin Aspart) 100 Unit/1 Ml Insuln.pen 8 Unit SQ TIDWMEALS Hold if blood sugar is <110 LAST DOSE GIVEN: DATE: TIME: NEXT DOSE DUE: DATE: TIME: Milk Of Magnesia (Magnesium Hydroxide) 2,400 Mg/10 Ml Oral.susp 2,400 Mg PO PRN DAILY PRN LAST DOSE GIVEN: DATE: TIME: NEXT DOSE DUE: DATE: TIME: Metformin Hcl 1,000 Mg Tablet 1,000 Mg PO BID LAST DOSE GIVEN: DATE: TIME: NEXT DOSE DUE: DATE: TIME: Magnesium Oxide 400 Mg Tablet 400 Mg PO BID LAST DOSE GIVEN: DATE: TIME: NEXT DOSE DUE: DATE: TIME: Loperamide (Loperamide Hcl) 2 Mg Tablet 2 Mg PO PRN BID PRN LAST DOSE GIVEN: DATE: TIME: NEXT DOSE DUE: DATE: TIME: Levemir (Insulin Detemir) 100 Unit/1 Ml Vial 10 Unit SQ HS LAST DOSE GIVEN: DATE: TIME: NEXT DOSE DUE: DATE: TIME: Glucagon Emergency Kit (Glucagon,Human Recombinant) 1 Mg Kit 1 Mg IM PRN For blood sugar <60 LAST DOSE GIVEN: DATE: TIME: NEXT DOSE DUE: DATE: TIME: Furosemide 40 Mg Tablet 40 Mg PO DAILY Hold if SBP <100 or HR <60 LAST DOSE GIVEN: DATE: TIME: NEXT DOSE DUE: DATE: TIME: Ferrous Sulfate 325 Mg Tablet 325 Mg PO BID LAST DOSE GIVEN: DATE: TIME: NEXT DOSE DUE: DATE: TIME: Eliquis (Apixaban) 5 Mg Tablet 5 Mg PO BID LAST DOSE GIVEN: DATE: TIME: NEXT DOSE DUE: DATE: TIME: Carvedilol 12.5 Mg Tablet 12.5 Mg PO BID Hold for HR less than 60 or SBP less than 100/60 LAST DOSE GIVEN: DATE: TIME: NEXT DOSE DUE: DATE: TIME: Breo Ellipta 100-25 Mcg Inh (Fluticasone/Vilanterol) 1 Each Aer.pow.ba 1 Puff IH DAILY Rinse mouth after use LAST DOSE GIVEN: DATE: TIME: NEXT DOSE DUE: DATE: TIME: Atorvastatin Calcium 40 Mg Tablet 40 Mg PO QHS LAST DOSE GIVEN: DATE: TIME: NEXT DOSE DUE: DATE: TIME: Amlodipine Besylate 10 Mg Tablet 10 Mg PO DAILY LAST DOSE GIVEN: DATE: TIME: NEXT DOSE DUE: DATE: TIME: ALLERGIES Allergies: Coded Allergies: No Known Drug Allergies (Unverified , 05/28/17) ROS Review of Systems unobtainable due to expressive aphasia PHYSICAL EXAM General: Alert, Oriented X3, Cooperative, No acute distress HEENT: Atraumatic, Mucous membr. moist/pink Lungs: Other (fine bibasilar crackles ) Heart: Regular rate Abdomen: Soft, No tenderness Extremities: Other (1-2+ bilateral LE edema ) Skin: No rashes, No breakdown Neuro: Sensation intact, Other (expressive aphasia ) Psych/Mental Status: Mental status NL, Mood NL MUSCULOSKELETAL: Osteoarthritic changes both hands VITALS Vital Signs Vital Signs Date Time Temp Pulse Resp B/P (MAP) Pulse Ox O2 Delivery O2 Flow Rate FiO2 01/21/21 05:52 91 Nasal Cannula 2.0 01/21/21 05:41 98.4 84 16 117/74 (88) LABS LABS Laboratory Tests Test 01/19/21 20:43 01/19/21 21:05 01/20/21 07:31 01/20/21 11:25 Blood Gas pH 7.36 (7.35-7.46) Blood Gas PCO2 50 mmHg (35-46) Blood Gas PO2 22 mmHg (80-100) Blood Gas HCO3 29 mmol/L (21-28) Arterial Bld O2 Saturation (Calc) 36 % (92-99) FiO2 21 % White Blood Count 6.1 x10^3/uL (4.0-11.0) Red Blood Count 4.17 x10^6/uL (4.30-5.70) Hemoglobin 11.5 g/dL (13.0-17.5) Hematocrit 35.2 % (39.0-53.0) Mean Corpuscular Volume 84 fL (79-100) Mean Corpuscular Hemoglobin 28 pg (25-35) Mean Corpuscular Hemoglobin Concent 33 g/dL (31-37) Red Cell Distribution Width 18.4 % (11.5-14.5) Platelet Count 166 x10^3/uL (140-400) Neutrophils (%) (Auto) 78 % (31-73) Lymphocytes (%) (Auto) 14 % (24-48) Monocytes (%) (Auto) 6 % (0-9) Eosinophils (%) (Auto) 1 % (0-3) Basophils (%) (Auto) 1 % (0-3) Neutrophils # (Auto) 4.8 x10^3uL (1.8-7.7) Lymphocytes # (Auto) 0.9 x10^3/uL (1.0-4.8) Monocytes # (Auto) 0.3 x10^3/uL (0.0-1.1) Eosinophils # (Auto) 0.1 x10^3/uL (0.0-0.7) Basophils # (Auto) 0.0 x10^3/uL (0.0-0.2) D-Dimer (Meli) 0.78 mg/L (0.00-0.50) Sodium Level 143 mmol/L (136-145) Potassium Level 4.0 mmol/L (3.5-5.1) Chloride Level 105 mmol/L (98-107) Carbon Dioxide Level 29 mmol/L (21-32) Anion Gap 9 (6-14) Blood Urea Nitrogen 18 mg/dL (8-26) Creatinine 1.4 mg/dL (0.7-1.3) Estimated GFR (Cockcroft-Gault) 61.2 BUN/Creatinine Ratio 13 (6-20) Glucose Level 161 mg/dL (70-99) Lactic Acid Level 2.3 mmol/L (0.4-2.0) Calcium Level 8.5 mg/dL (8.5-10.1) Total Bilirubin 1.0 mg/dL (0.2-1.0) Aspartate Amino Transf (AST/SGOT) 28 U/L (15-37) Alanine Aminotransferase (ALT/SGPT) 34 U/L (16-63) Alkaline Phosphatase 119 U/L (46-116) Troponin I Quantitative < 0.017 ng/mL (0-0.055) Total Protein 7.3 g/dL (6.4-8.2) Albumin 3.5 g/dL (3.4-5.0) Albumin/Globulin Ratio 0.9 (1.0-1.7) Glucose (Fingerstick) 89 mg/dL (70-99) 109 mg/dL (70-99) Test 01/20/21 16:27 01/20/21 20:09 01/21/21 06:20 01/21/21 07:38 Glucose (Fingerstick) 139 mg/dL (70-99) 154 mg/dL (70-99) 101 mg/dL (70-99) White Blood Count 5.5 x10^3/uL (4.0-11.0) Red Blood Count 3.72 x10^6/uL (4.30-5.70) Hemoglobin 10.3 g/dL (13.0-17.5) Hematocrit 31.1 % (39.0-53.0) Mean Corpuscular Volume 84 fL (79-100) Mean Corpuscular Hemoglobin 28 pg (25-35) Mean Corpuscular Hemoglobin Concent 33 g/dL (31-37) Red Cell Distribution Width 17.9 % (11.5-14.5) Platelet Count 163 x10^3/uL (140-400) Sodium Level 144 mmol/L (136-145) Potassium Level 3.3 mmol/L (3.5-5.1) Chloride Level 105 mmol/L (98-107) Carbon Dioxide Level 27 mmol/L (21-32) Anion Gap 12 (6-14) Blood Urea Nitrogen 17 mg/dL (8-26) Creatinine 1.4 mg/dL (0.7-1.3) Estimated GFR (Cockcroft-Gault) 61.0 BUN/Creatinine Ratio 12 (6-20) Glucose Level 98 mg/dL (70-99) Calcium Level 8.3 mg/dL (8.5-10.1) Total Bilirubin 0.9 mg/dL (0.2-1.0) Aspartate Amino Transf (AST/SGOT) 33 U/L (15-37) Alanine Aminotransferase (ALT/SGPT) 37 U/L (16-63) Alkaline Phosphatase 125 U/L (46-116) Total Protein 6.5 g/dL (6.4-8.2) Albumin 3.0 g/dL (3.4-5.0) Albumin/Globulin Ratio 0.9 (1.0-1.7) ECHOCARDIOGRAM Echocardiogram <Conclusion> The systolic function is severely impaired. The Ejection Fraction is 25%. There is global hypokinesis of the left ventricle. There is small left pleural effusion. DATE: 09/11/20 [id number] ASSESSMENT/PLAN Assessment/Plan 1. Acute on chronic respiratory failure secondary to CHF 2. Acute on chronic systolic CHF with cardiomyopathy; s/p IV Lasix. Recent echo with LVEF 25% 3. Hypertension; controlled 4. Hyperlipidemia 5. Diabetes, II 6. H/o CVA with right-sided weakness. is on Eliquis therapy per med list 7. JONI vs CKD 8. Elevated d-dimer; CTA negative for PE Recommendations Diuresis with monitoring of renal function Secondary prevention Statin therapy HF optimization with Lasix, Coreg. Add ACEi if renal functions remains stable Obtain prior cardiac workup if available Supportive care JOSE ELIAS BRISCOE APRN January 21, 2021 08:49
[2021-01-21] MEDS ORDERED: NON FORMULARY ITEM (Fluticasone/Vilanterol (Breo Ellipta 100-25 Mcg Inh) 1 PUFF) IH SCH (09:00)
[2021-01-21] MEDS: MAGNESIUM OXIDE 400 MG TABLET PO SCH ×2 (09:00→21:14)
[2021-01-21] MEDS ORDERED: POTASSIUM CHLORIDE 20 MEQ TABLET.ER. PO ONE (09:00)
[2021-01-21] MEDS: BUDESONIDE 0.5 MG/2 ML NEBU NEB SCH ×2 (09:19→20:08)
[2021-01-21 10:25] VITALS: BP 149/77
[2021-01-21] MEDS: FUROSEMIDE 40 MG/4 ML VIAL IVP SCH (11:43)
[2021-01-21] MEDS: SERTRALINE 50 MG TABLET. PO SCH (11:43)
[2021-01-21] MEDS: CARVEDILOL 12.5 MG TABLET PO SCH ×2 (11:44→21:14)
[2021-01-21] MEDS: FERROUS SULFATE 325 MG TABLET. PO SCH ×2 (11:44→21:14)
[2021-01-21] MEDS: APIXABAN 5 MG TABLET. PO SCH ×2 (11:44→21:14)
[2021-01-21] MEDS: MULTIVITAMIN with MINERAL TABLET. PO SCH (11:45)
[2021-01-21] MEDS: amLODIPine BESYLATE 10 MG TABLET PO SCH (11:45)
[2021-01-21] MEDS ORDERED: IPRATRPIUM/ALBUTEROL 0.5/2.5MG 3 ML NEBU. NEB PRN (14:45)
[2021-01-21 15:55] VITALS: BP 116/75
[2021-01-21 19:09] VITALS: BP 117/75
[2021-01-21] MEDS: PANTOPRAZOLE 40 MG TABLET. PO SCH (21:14)
[2021-01-21] MEDS: ATORVASTATIN CALCIUM 20 MG TABLET PO SCH (21:14)
[2021-01-21] MEDS: POTASSIUM CHLORIDE 20 MEQ TABLET.ER. PO SCH (21:14)
[2021-01-21] MEDS: INSULIN GLARGINE SYRINGE. SQ SCH (21:16)
[2021-01-21 23:22] VITALS: BP 121/74
--- NOTE | 2021-01-22 | PN ---
DATE: 01/21/2021 SUBJECTIVE: The patient is resting, slightly propped up in bed in no apparent distress. He is awake, alert. On questioning him, he stated feeling much better today. He continued to have some wheezing. He is getting antibiotic as well as IV Lasix. He is clearly doing much better. PHYSICAL EXAMINATION: GENERAL: Today when I examined him, he was pale, no jaundice or cyanosis, no lymphadenopathy, no thyromegaly, no jugular venous distention, no lower limb edema. VITAL SIGNS: His heart rate was 78, blood pressure 149/77, temperature was 98.7, respiratory rate was 18 and oxygen saturation was 94% on 2 liters of oxygen. HEAD, EYES, EARS, NOSE AND THROAT: Normocephalic, atraumatic. NECK: Supple. HEART: Showed normal first and second heart sounds. No gallop, rub or murmur. CHEST: Clear to auscultation, no crepitation or rhonchi. ABDOMEN: Slightly distended, soft, nontender. NEUROLOGIC: He was awake, alert, responding appropriately. All cranial nerves intact. He has right-sided hemiplegia with fixed flexion contraction of his right upper and right lower extremities. His intake over the last 24 hours and output are incompletely recorded. LABORATORY DATA: As of this morning, his serum sodium was 144, potassium 3.3, chloride 105, bicarbonate 27, anion gap of 12, BUN 17, creatinine 1.4. Estimated GFR was 61 mL per minute. His glucose was 98, calcium was 8.3. Total bilirubin, AST, ALT were normal. Alkaline phosphatase slightly elevated. Total protein 6.5, albumin was 3. Her white cell count was 5500, hemoglobin 10, hematocrit 30, MCV 84 and platelet count of 163,000. ASSESSMENT: 1. Healthcare-associated pneumonia. 2. Acute hypoxic respiratory failure. 3. Chronic obstructive pulmonary disease exacerbation. 4. Acute on chronic diastolic congestive heart failure. 5. Type 2 diabetes mellitus. 6. Hyperlipidemia. 7. Hypertension. 8. Cardiomyopathy with an ejection fraction of 25%. 9. 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 PLAN: To continue with IV antibiotic. Continue with IV Lasix. Continue with bronchodilators. I will add potassium as her potassium is low and monitor his response. MAC/POP DR: MAC/rut TID: [id number]
[2021-01-22] MEDS: PIPERACILLIN/TAZOBACTAM 3.375 GM in IV NORMAL SALINE 50ML 50 ML IV SCH ×5 (00:07→23:25)
[2021-01-22] MEDS: ALBUTEROL SULFATE 2.5 MG/3 ML NEBU. NEB SCH ×4 (05:17→20:21)
[2021-01-22 05:58] VITALS: BP 135/83
[2021-01-22 06:46] LABS: CALCIUM 8.2 mg/dL (8.5-10.1); CREATININE 1.4 mg/dL (0.7-1.3); POTASSIUM 3.4 mmol/L (3.5-5.1)
[2021-01-22] MEDS: metFORMIN 500 MG TABLET PO SCH ×2 (08:00→17:00)
[2021-01-22] MEDS: INSULIN LISPRO 300 UNITS/3 ML VIAL. SQ SCH ×3 (08:00→17:00)
--- NOTE | 2021-01-22 08:09 | PDOC ---
CARDIO Progress Notes Date & Time Date of Service DATE: 01/22/21 TIME: 08:05 Time of Evaluation 08:05 Subjective Notes Not more SOA. No chest pain Vitals Vitals Vital Signs Date Time Temp Pulse Resp B/P (MAP) Pulse Ox O2 Delivery O2 Flow Rate FiO2 01/22/21 05:58 97.4 78 18 135/83 (100) 96 Nasal Cannula 2.0 Weight Weight [ ] Input and Output I.O. Intake and Output 01/22/21 07:00 Intake Total 1030 ml Balance 1030 ml Intake Oral 880 ml IV Total 150 ml # Voids 9 # Bowel Movements 1 Laboratory Labs Laboratory Tests Test 01/20/21 11:25 01/20/21 16:27 01/20/21 20:09 01/21/21 06:20 Glucose (Fingerstick) 109 mg/dL (70-99) 139 mg/dL (70-99) 154 mg/dL (70-99) White Blood Count 5.5 x10^3/uL (4.0-11.0) Red Blood Count 3.72 x10^6/uL (4.30-5.70) Hemoglobin 10.3 g/dL (13.0-17.5) Hematocrit 31.1 % (39.0-53.0) Mean Corpuscular Volume 84 fL (79-100) Mean Corpuscular Hemoglobin 28 pg (25-35) Mean Corpuscular Hemoglobin Concent 33 g/dL (31-37) Red Cell Distribution Width 17.9 % (11.5-14.5) Platelet Count 163 x10^3/uL (140-400) Sodium Level 144 mmol/L (136-145) Potassium Level 3.3 mmol/L (3.5-5.1) Chloride Level 105 mmol/L (98-107) Carbon Dioxide Level 27 mmol/L (21-32) Anion Gap 12 (6-14) Blood Urea Nitrogen 17 mg/dL (8-26) Creatinine 1.4 mg/dL (0.7-1.3) Estimated GFR (Cockcroft-Gault) 61.0 BUN/Creatinine Ratio 12 (6-20) Glucose Level 98 mg/dL (70-99) Calcium Level 8.3 mg/dL (8.5-10.1) Magnesium Level 1.6 mg/dL (1.8-2.4) Total Bilirubin 0.9 mg/dL (0.2-1.0) Aspartate Amino Transf (AST/SGOT) 33 U/L (15-37) Alanine Aminotransferase (ALT/SGPT) 37 U/L (16-63) Alkaline Phosphatase 125 U/L (46-116) CJ-Vvp-T-Type Natriuretic Peptide 43147 pg/mL (0-124) Total Protein 6.5 g/dL (6.4-8.2) Albumin 3.0 g/dL (3.4-5.0) Albumin/Globulin Ratio 0.9 (1.0-1.7) Procalcitonin < 0.10 ng/mL (0.00-0.10) Test 01/21/21 07:38 01/21/21 11:57 01/21/21 17:24 01/21/21 20:25 Glucose (Fingerstick) 101 mg/dL (70-99) 128 mg/dL (70-99) 132 mg/dL (70-99) 132 mg/dL (70-99) Test 01/22/21 05:47 01/22/21 07:42 Sodium Level 148 mmol/L (136-145) Potassium Level 3.4 mmol/L (3.5-5.1) Chloride Level 109 mmol/L (98-107) Carbon Dioxide Level 29 mmol/L (21-32) Anion Gap 10 (6-14) Blood Urea Nitrogen 15 mg/dL (8-26) Creatinine 1.4 mg/dL (0.7-1.3) Estimated GFR (Cockcroft-Gault) 61.0 Glucose Level 106 mg/dL (70-99) Calcium Level 8.2 mg/dL (8.5-10.1) Glucose (Fingerstick) 90 mg/dL (70-99) Microbiology Micro Microbiology 01/19/21 Blood Culture - Preliminary, Resulted NO GROWTH AFTER 2 DAYS... Physical Exams HEENT: Neck Supple W Full Motion Chest: Symmetric Lungs: Clear to Auscultation Heart: RRR (SR) Abdomen: Soft N/T Extremities: Other (1+ bilateral LE edema ) Neurology: alert, oriented, follow commands Assessment Assessment 1. Acute on chronic respiratory failure secondary to CHF 2. Acute on chronic systolic CHF with cardiomyopathy; s/p IV Lasix. Recent echo with LVEF 25% 3. Hypertension; controlled 4. Hyperlipidemia; statin 5. Diabetes, II 6. H/o CVA with right-sided weakness. is on Eliquis therapy per med list 7. JONI vs CKD 8. Elevated d-dimer; CTA negative for PE Recommendations Diuresis with monitoring of renal function Repeat CXR pending Daily weights Secondary prevention Statin therapy HF optimization with Lasix, Coreg. Add ACEi if renal functions remains stable Supportive care JOSE ELIAS BRISCOE APRN January 22, 2021 08:09
[2021-01-22] MEDS ORDERED: POTASSIUM CHLORIDE 20 MEQ TABLET.ER. PO ONE (08:15)
[2021-01-22] MEDS: POTASSIUM CHLORIDE 20 MEQ TABLET.ER. PO SCH ×2 (09:00→20:58)
[2021-01-22] MEDS: amLODIPine BESYLATE 10 MG TABLET PO SCH (09:00)
[2021-01-22] MEDS: CARVEDILOL 12.5 MG TABLET PO SCH ×2 (09:00→20:57)
[2021-01-22] MEDS: FERROUS SULFATE 325 MG TABLET. PO SCH ×2 (09:00→20:58)
[2021-01-22] MEDS: APIXABAN 5 MG TABLET. PO SCH ×2 (09:00→20:57)
[2021-01-22] MEDS: MULTIVITAMIN with MINERAL TABLET. PO SCH (09:00)
[2021-01-22] MEDS: SERTRALINE 50 MG TABLET. PO SCH (09:00)
[2021-01-22] MEDS: MAGNESIUM OXIDE 400 MG TABLET PO SCH ×2 (09:00→20:57)
[2021-01-22] MEDS: FUROSEMIDE 40 MG/4 ML VIAL IVP SCH (09:00)
--- NOTE | 2021-01-22 09:08 | RAD ---
EXAM: Chest, single view. HISTORY: Respiratory changes. COMPARISON: 01/19/2021 FINDINGS: A frontal view of the chest is obtained. There are stable moderate right and small left ple ural effusions. There is stable diffuse interstitial infiltrate with suspected partial lateral lower lobe consolidation. There is stable cardiomegaly. There is no pneumothorax. IMPRESSION: 1. Stable moderate right and small left pleural effusions. 2. Stable diffuse infiltrate with partial bilateral lower lobe consolidation. 3. Stable cardiomegaly. Electronically signed by: Melissa Floers MD (01/22/2021 9:05 AM) [id number]
[2021-01-22] MEDS: BUDESONIDE 0.5 MG/2 ML NEBU NEB SCH ×2 (09:40→20:20)
[2021-01-22] MEDS ORDERED: MAGNESIUM SULFATE 1GM 100 ML IV ONE (10:00)
[2021-01-22 10:39] VITALS: BP 146/80
[2021-01-22 15:27] VITALS: BP 109/65
[2021-01-22 18:48] VITALS: BP 121/74
--- NOTE | 2021-01-22 20:49 | PN ---
DATE: 01/22/2021 ATTENDING PHYSICIAN: Dr. Amaya. SUBJECTIVE: The patient is comfortable. He is alert, but has significant expressive aphasia. OBJECTIVE: VITAL SIGNS: Blood pressure this morning is 121/74, pulse is 81 and regular. He is afebrile. Oxygen saturation 96% on 2 liters nasal cannula. HEENT: Head is without trauma. Pupils are reactive. Sclerae nonicteric. NECK: Supple. Venous pressure distended at 45 degrees. LUNGS: Bibasilar crackles. CARDIOVASCULAR: Showed regular heart tones. No gallop. Peripheral pulses are palpable and full. ABDOMEN: Soft, scaphoid. EXTREMITIES: Show 2+ edema. NEUROLOGIC: Finding focally intact. ASSESSMENT: 1. A 66-year-old gentleman with acute on chronic congestive heart failure. 2. Ischemic cardiomyopathy. 3. Old stroke with expressive aphasia and hemiparesis. 4. Generalized debilitation. 5. Mild hypokalemia. 6. Urinary incontinence. PLAN: 1. Continue diuresis, more Lasix has been ordered. 2. Potassium and magnesium replacement. 3. Serial chemistry. 4. Daily weights. 5. Placement of Ruth catheter. He remains a DNR per advanced directives. JU DR: Daniel TID: [id number]
[2021-01-22] MEDS: PANTOPRAZOLE 40 MG TABLET. PO SCH (20:57)
[2021-01-22] MEDS: ATORVASTATIN CALCIUM 20 MG TABLET PO SCH (20:57)
[2021-01-22] MEDS: INSULIN GLARGINE SYRINGE. SQ SCH (21:00)
[2021-01-22 22:23] VITALS: BP 105/89
[2021-01-23] MEDS: ALBUTEROL SULFATE 2.5 MG/3 ML NEBU. NEB SCH ×4 (05:11→20:55)
[2021-01-23] MEDS: PIPERACILLIN/TAZOBACTAM 3.375 GM in IV NORMAL SALINE 50ML 50 ML IV SCH ×3 (05:49→17:37)
[2021-01-23 06:39] VITALS: BP 113/62
[2021-01-23] MEDS: INSULIN LISPRO 300 UNITS/3 ML VIAL. SQ SCH ×3 (07:48→17:00)
[2021-01-23] MEDS: BUDESONIDE 0.5 MG/2 ML NEBU NEB SCH ×2 (08:00→20:55)
--- NOTE | 2021-01-23 08:08 | PDOC ---
CARDIO Progress Notes Date & Time Date of Service DATE: 01/23/21 TIME: 08:05 Time of Evaluation 08:05 Subjective Notes no complaints, breathing improved Vitals Vitals Vital Signs Date Time Temp Pulse Resp B/P (MAP) Pulse Ox O2 Delivery O2 Flow Rate FiO2 01/23/21 06:39 98.8 72 16 113/62 (79) 94 Nasal Cannula 2.0 Weight Weight [ ] Input and Output I.O. Intake and Output 01/23/21 07:00 Intake Total 730 ml Balance 730 ml Intake Oral 580 ml IV Total 150 ml # Voids 8 # Bowel Movements 1 Laboratory Labs Laboratory Tests Test 01/21/21 11:57 01/21/21 17:24 01/21/21 20:25 01/22/21 05:47 Glucose (Fingerstick) 128 mg/dL (70-99) 132 mg/dL (70-99) 132 mg/dL (70-99) Sodium Level 148 mmol/L (136-145) Potassium Level 3.4 mmol/L (3.5-5.1) Chloride Level 109 mmol/L (98-107) Carbon Dioxide Level 29 mmol/L (21-32) Anion Gap 10 (6-14) Blood Urea Nitrogen 15 mg/dL (8-26) Creatinine 1.4 mg/dL (0.7-1.3) Estimated GFR (Cockcroft-Gault) 61.0 Glucose Level 106 mg/dL (70-99) Calcium Level 8.2 mg/dL (8.5-10.1) Magnesium Level 1.5 mg/dL (1.8-2.4) Test 01/22/21 07:42 01/22/21 11:39 01/22/21 16:40 01/22/21 20:56 Glucose (Fingerstick) 90 mg/dL (70-99) 172 mg/dL (70-99) 120 mg/dL (70-99) 117 mg/dL (70-99) Test 01/23/21 07:44 Glucose (Fingerstick) 77 mg/dL (70-99) Microbiology Micro Microbiology 01/19/21 Blood Culture - Preliminary, Resulted NO GROWTH AFTER 3 DAYS... Physical Exams HEENT: Neck Supple W Full Motion Chest: Symmetric Lungs: Other (diminished, upper airway crackles, improved with clearing) Heart: RRR (SR) Abdomen: Soft N/T Extremities: Other (1+ bilateral LE edema ) Neurology: alert, oriented, follow commands Assessment Assessment 1. Acute on chronic respiratory failure secondary to CHF, moderate right pleural effusion 2. Acute on chronic systolic CHF with cardiomyopathy; s/p IV Lasix. Recent echo with LVEF 25% 3. Hypertension; controlled 4. Hyperlipidemia; statin 5. Diabetes, II 6. H/o CVA with right-sided weakness. is on Eliquis therapy per med list 7. JONI vs CKD 8. Elevated d-dimer; CTA negative for PE 9. Hypomagnesemia 10. Dysphagia; ST following Recommendations Repeat labs; monitor electrolytes, renal function Daily weights Secondary prevention Statin therapy HF optimization with Lasix, Coreg. Add ACEi if renal functions remains stable Supportive care JOSE ELIAS BRISCOE APRN January 23, 2021 08:08
[2021-01-23] MEDS: FUROSEMIDE 40 MG/4 ML VIAL IVP SCH (09:00)
[2021-01-23] MEDS: MAGNESIUM OXIDE 400 MG TABLET PO SCH ×3 (09:00→21:38)
--- NOTE | 2021-01-23 09:24 | PN ---
DATE: 01/23/2021 ATTENDING PHYSICIAN: Dr. Amaya. SUBJECTIVE: The patient is up in bed. He is eating breakfast independently. He remains aphasic, but he comprehends what I am saying. OBJECTIVE FINDINGS: VITAL SIGNS: Blood pressure this morning is 113/62, his pulse is 72 and regular, temperature 98.8 degrees Fahrenheit, oxygen saturation 94% on 2 liters of oxygen by nasal cannula. HEENT: Head is without trauma. The pupils are reactive. The sclerae are nonicteric. Oropharynx is clear. NECK: Supple. Venous pressure is distended at 45 degrees. LUNGS: Have good airways, but he has got some upper airway rattling. He has diminished breath sounds at the bases. CARDIOVASCULAR: Showed distant heart tones. No obvious gallops. Peripheral pulses are palpable and full. ABDOMEN: Soft, nontender to palpation. Bowel sounds are normoactive. EXTREMITIES: Showed right-sided hemiparesis. NEUROLOGIC FINDING: He remains aphasic, expressive aphasia. SKIN: Warm and dry. LABORATORY DATA: Chemistry panel is pending. Nonfasting blood sugar 117 mg/dL. ASSESSMENT: 1. A 66-year-old gentleman with acute on chronic congestive heart failure, ejection fraction estimated at 20%. 2. Ischemic cardiomyopathy. 3. Old stroke with expressive aphasia and right-sided hemiparesis. 4. Generalized debilitation. 5. Hypokalemia. 6. Urinary incontinence. 7. Probable aspiration. PLAN: 1. Continue diuresis, more Lasix has been ordered. 2. Potassium and magnesium replacement. 3. Serial chemistries. 4. Daily weights. 5. We are working on discharge planning. Family needs to be notified. He is a DNR per advanced directives. RITO DR: Daniel TID: [id number]
[2021-01-23 09:48] LABS: CALCIUM 8.1 mg/dL (8.5-10.1); CREATININE 1.5 mg/dL (0.7-1.3); GFR 56.3; MAGNESIUM 1.6 mg/dL (1.8-2.4); POTASSIUM 3.7 mmol/L (3.5-5.1)
[2021-01-23] MEDS: metFORMIN 500 MG TABLET PO SCH ×2 (10:15→17:00)
[2021-01-23] MEDS: amLODIPine BESYLATE 10 MG TABLET PO SCH (10:24)
[2021-01-23] MEDS: SERTRALINE 50 MG TABLET. PO SCH (10:24)
[2021-01-23] MEDS ORDERED: MAGNESIUM SULFATE 2GM 50 ML IV ONE (10:30)
[2021-01-23] MEDS: MULTIVITAMIN with MINERAL TABLET. PO SCH (10:37)
[2021-01-23] MEDS: POTASSIUM CHLORIDE 20 MEQ TABLET.ER. PO SCH ×3 (10:37→21:38)
[2021-01-23] MEDS: FERROUS SULFATE 325 MG TABLET. PO SCH ×3 (10:38→21:38)
[2021-01-23] MEDS: APIXABAN 5 MG TABLET. PO SCH ×3 (10:38→21:38)
[2021-01-23] MEDS: CARVEDILOL 12.5 MG TABLET PO SCH ×3 (10:38→21:37)
[2021-01-23] MEDS: FUROSEMIDE 20 MG/2 ML VIAL IVP SCH (10:43)
[2021-01-23 11:01] VITALS: BP 115/71
[2021-01-23 15:20] VITALS: BP 111/69
[2021-01-23 19:47] VITALS: BP 114/67
[2021-01-23] MEDS: PANTOPRAZOLE 40 MG TABLET. PO SCH ×2 (21:00→21:37)
[2021-01-23] MEDS: ATORVASTATIN CALCIUM 20 MG TABLET PO SCH ×2 (21:00→21:39)
[2021-01-23] MEDS: INSULIN GLARGINE SYRINGE. SQ SCH (21:39)
--- NOTE | 2021-01-23 22:00 | NUR ---
PT refused PO medications unless given thin liquids. PT refused thickened liquids. PT advised that he would be seen for a video swallow study 01/24 morning to further evaluate. PT calm and cooperative with cares.
[2021-01-24] MEDS: PIPERACILLIN/TAZOBACTAM 3.375 GM in IV NORMAL SALINE 50ML 50 ML IV SCH ×3 (00:01→12:15)
[2021-01-24] MEDS: ALBUTEROL SULFATE 2.5 MG/3 ML NEBU. NEB SCH ×2 (05:20→12:00)
[2021-01-24 06:44] VITALS: BP 144/90
[2021-01-24] MEDS: INSULIN LISPRO 300 UNITS/3 ML VIAL. SQ SCH ×2 (08:00→12:00)
[2021-01-24] MEDS: BUDESONIDE 0.5 MG/2 ML NEBU NEB SCH (08:00)
[2021-01-24] MEDS: metFORMIN 500 MG TABLET PO SCH (08:00)
[2021-01-24] MEDS: MAGNESIUM OXIDE 400 MG TABLET PO SCH (09:00)
[2021-01-24] MEDS: FUROSEMIDE 20 MG/2 ML VIAL IVP SCH (09:07)
[2021-01-24] MEDS: amLODIPine BESYLATE 10 MG TABLET PO SCH (11:09)
[2021-01-24] MEDS: POTASSIUM CHLORIDE 20 MEQ TABLET.ER. PO SCH (11:09)
[2021-01-24] MEDS: APIXABAN 5 MG TABLET. PO SCH (11:09)
[2021-01-24] MEDS: FERROUS SULFATE 325 MG TABLET. PO SCH (11:09)
[2021-01-24] MEDS: MULTIVITAMIN with MINERAL TABLET. PO SCH (11:09)
[2021-01-24] MEDS: SERTRALINE 50 MG TABLET. PO SCH (11:10)
[2021-01-24] MEDS: CARVEDILOL 12.5 MG TABLET PO SCH (11:10)
[2021-01-24 11:37] VITALS: BP 152/84
--- NOTE | 2021-01-24 13:26 | NUR ---
NURSING NOTE DISCHARGE PT DISCHARGED BACK TO [facility] VIA WHEELCHAIR, REPORT CALLED TO [facility]. MARGARITA REED.
--- NOTE | 2021-01-24 17:17 | RAD ---
Video swallow 01/24/2021 Clinical History: Dysphagia. Technique: A video swallow study was performed by the department of speech pathology. The patient was given a series of swallowing trials using varying consistencies of barium under fluoroscopic control . The total fluoroscopic time for this study is listed as 5.2 minutes. A single fluoroscopically capt ured lateral digital radiograph of the neck was obtained. Findings: The oral phase of swallowing is prolonged. Mild hypopharyngeal residuals are seen particula rly with solid food. The patient demonstrates laryngeal penetration with solid food. No aspiration is seen. IMPRESSION: No aspiration is seen. Electronically signed by: Ascencion Das MD (01/24/2021 5:15 PM) [id number]
--- NOTE | 2021-01-24 18:02 | DS ---
DATE OF DISCHARGE: 01/24/2021 ATTENDING PHYSICIAN: Dr. Amaya. FINAL DISCHARGE DIAGNOSES: 1. Aspiration pneumonia, improved. 2. Acute on chronic congestive heart failure, ejection fraction estimated at 20%. 3. Ischemic cardiomyopathy. 4. Old stroke with expressive aphasia and right-sided hemiparesis. 5. Generalized debilitation. 6. Urinary incontinence. 7. Aspiration. 8. Diabetes mellitus. HISTORY AND PHYSICAL: The patient is a 66-year-old gentleman, resident of the [facility]. He was admitted with increasing shortness of breath, cough and congestion and aspiration pneumonia. PHYSICAL EXAMINATION: Please see the dictated note. PERTINENT LABORATORY AND X-RAY STUDIES: On this admission, his hemoglobin was 11.5 g/dL, white count 6100. Chemistry panel showed sodium 148, potassium 3.7 mEq, creatinine 1.5 mg percent. Nonfasting blood sugar 114. BNP was elevated at 16,900. COURSE IN HOSPITAL: The patient was admitted. He was started on intravenous antibiotics. He received 6 full days of Zosyn with marked improvement. Supplemental oxygen was weaned down. Cardiology consultation is appreciated. They recommended continuing conservative treatment with diuretics and afterload reduction. A swallow study was done. Recommendation was for thin liquids, pureed diet with a ground meat with gravy. He tolerated this well. Of the sixth hospital day, the patient was then discharged back to [facility]. He will follow the dietary recommendations as recommended by Speech Therapy. In addition, 5 more days of Augmentin 500 mg p.o. b.i.d., Lasix 80 mg p.o. daily and continuation of his other home meds including Eliquis 5 mg b.i.d., Coreg 12.5 mg b.i.d., Lipitor 40 mg daily, fluticasone daily, Lasix as ordered. Insulin Regular and Lantus, 8 units of Regular before each meal, Lantus 10 units at bedtime. Metformin 1000 mg b.i.d., Protonix and Zoloft. For now, we held his loperamide, magnesium oxide and glucagon. Therefore, the patient was discharged back to [facility] [place] with explicit drug and followup care. He remains a DNR per advanced directive. His prognosis is guarded. He was discharged then from our hospital in stable condition with explicit drug and followup care. Total discharge time spent 42 minutes. TANIKA/HERB/ANOOP DR: Daniel TID: [id number] CC: Josesito Turk
== END 2021-01-24 13:28 | DRG 177 ==
LOC: ER 19:46 → 1 SOUTH 23:22
PROVIDERS: ADMIT Internal Medicine; ATTEND Internal Medicine
DX: J15.6 Pneumonia due to other Gram-negative bacteria (principal); I50.43 Acute on chronic combined systolic (congestive) and diastolic (congestive) heart failure; J44.1 Chronic obstructive pulmonary disease with (acute) exacerbation; K51.90 Ulcerative colitis, unspecified, without complications; N17.9 Acute kidney failure, unspecified; I69.351 Hemiplegia and hemiparesis following cerebral infarction affecting right dominant side; J69.0 Pneumonitis due to inhalation of food and vomit; J15.9 Unspecified bacterial pneumonia; E11.9 Type 2 diabetes mellitus without complications; E78.00 Pure hypercholesterolemia, unspecified; E78.5 Hyperlipidemia, unspecified; E83.42 Hypomagnesemia; E87.6 Hypokalemia; I11.0 Hypertensive heart disease with heart failure; I25.5 Ischemic cardiomyopathy; R13.10 Dysphagia, unspecified; F32.9 Major depressive disorder, single episode, unspecified; K21.9 Gastro-esophageal reflux disease without esophagitis; Z66 Do not resuscitate; R32 Unspecified urinary incontinence; Z79.01 Long term (current) use of anticoagulants; Z87.440 Personal history of urinary (tract) infections
CPT/HCPCS: 36415; 36600; 71045; 71275; 74230; 80048; 80053; 82803; 82947; 83605; 83735; 83880; 84145; 84484; 85025; 85027; 85379; 87040; 93005; 94640; 94760; 96365; 96375; J0456; J0696; J1815; J1940; J2543; J3475; J7050; Q9967; 92610; 92611; 99285-25; J7613

== ENCOUNTER 2021-04-12 23:23 | Inpatient (IN) | payer MEDICARE, MEDICAID ==
[~2021-04-12] VITALS: Ht 188 cm; Wt 88.0 kg
[~2021-04-12 23:23] MED LIST: ACET325T9 PO; AMLO-187 PO; APIX5TAB3 PO; ATOR40TA59 PO; CARV12.53 PO; FERR325T14 PO; FLUT1AER IH; FURO40TA4 PO; GLUC1KIT IM; INSU100I17 SQ; INSU100V13 SQ; LOPE2TAB27 PO; MAGN24003 PO; MAGN400T5 PO; METF10007 PO; MULT-460 PO; PANT20TA58 PO; SERT50TA PO
--- NOTE | 2021-04-12 23:59 | PHYS DOC ---
Past History Past Medical History: CHF, CVA, Diabetes, High Cholesterol, UTI Additional Past Medical Histor: ulcerative colitis Past Surgical History: No Surgical History Alcohol Use: None Drug Use: None General Adult EDM: Chief Complaint: SHORTNESS OF BREATH HPI: HPI: ".. Oh.. I don't know.. they said... not ... breath right... " Patient is a 66 year old male who presents with reported hypoxia at [place]. Patient sent from [facility] for reportedly hypoxia. No nursing call or notification of transfer. Patient is a resident of [facility] since 09/11. Patient currently maintaining oxygen saturations above 90%. Patient has extensive medical history of acute respiratory on chronic respiratory failure with episodes of hypoxia. Is O2 dependent at night at 3 L nasal cannula. Patient has CVA with right side deficits. Muscle contractures, denies joint changes, gait disorder, dysphagia, gas-filled to ostial reflux w ithout soft tinnitus, hyperlipidemia, generalized deconditioning and muscle weakness, pneumonia, ulcerative colitis, discoordination, urinary tract infections, aphasia secondary to CVA, COPD, hemiplegia and hemiparesis cerebral right side sequela, major depressive disorder, diabetes, systolic and diastolic heart failure, malnutrition, atrial fibrillation, hypertension, and dysphagia. Patient normally follows with Dr. Draper. Patient also follows with at [facility]. Patient has had Covid vaccination. Review of Systems: Review of Systems: Constitutional: Denies fever or chills Eyes: Denies change in visual acuity HENT: Denies nasal congestion or sore throat Respiratory: Complains of shortness of breath Cardiovascular: Denies chest pain or edema GI: Denies abdominal pain, nausea, vomiting, bloody stools or diarrhea : Denies dysuria Musculoskeletal: Denies back pain or joint pain Integument: Denies rash Neurologic: Denies headache, no new focal weakness or sensory changes -right- sided deficits Endocrine: Denies polyuria or polydipsia Lymphatic: Denies swollen glands Psychiatric: History of anxiety Family History: Family History: Not currently available Current Medications: Current Meds: See nursing for home meds Allergies: Allergies: Allergies Coded Allergies Type Severity Reaction Last Updated Verified No Known Drug Allergies 05/28/17 No Physical Exam: PE: Constitutional: Moderate acute distress, non-toxic appearance. [] HENT: Normocephalic, atraumatic, bilateral external ears normal, oropharynx moist, no oral exudates, nose normal. [] Eyes: PERRLA, EOMI, conjunctiva normal, no discharge. [] Neck: Normal range of motion, no tenderness, supple, no stridor. JVD in the sitting position Cardiovascular: Irregular rate heart rate irregular rhythm, no murmur. Bedside monitor shows occasional PVCs at a rhythm appears to be A. fib Lungs & Thorax: Bilateral breath sounds equal apex few scattered wheezes and crackles throughout on auscultation [] Abdomen: Bowel sounds normal, soft, no tenderness, no masses, no pulsatile masses. [] Skin: Warm, dry, no erythema, no rash. [] Back: No tenderness, no CVA tenderness. [] Extremities: No tenderness, contracted right upper arm, no cording appreciated in legs Neurologic: Alert and oriented ,, decreased right-sided motor function, appears to have distal sensory function, no new focal deficits noted per patient and [facility] Psychologic: Affect anxious, judgement does appear to have some dementia and memory issues, mood normal. [] Current Patient Data: Vital Signs: Vital Signs Date Time Temp Pulse Resp B/P (MAP) Pulse Ox O2 Delivery O2 Flow Rate FiO2 04/12/21 23:28 97.8 96 20 115/43 (67) 96 Room Air EKG: EKG: My interpretation EKG shows a irregular rate and rhythm. Overall morphology appears to be A. fib. Does have right bundle branch block and inferior changes. Abnormal EKG. Time of this EKG is 2330 hrs. My interpretation EKG #2 shows a irregular rate and rhythm. Overall morphology appears to be A. fib. Does have findings of an inferior and right ventricular contour changes. Abnormal EKG. Time of this EKG is 357 hours [] overall morphology is not changed from the earlier EKG Radiology/Procedures: Radiology/Procedures: [] IMAGING REPORT Signed PATIENT: ÁNGEL MICHEL ACCOUNT: [id number] : 1955 LOCATION: ER AGE: 66 SEX: M EXAM STATUS: REG ER ORD. PHYSICIAN: ASTON HESTER MD REASON: hypoxia PROCEDURE: PORTABLE CHEST 1V AP chest x-ray HISTORY: Hypoxia. COMPARISON: Chest x-ray January 22, 2021 FINDINGS: Cardiac megaly stable. Tortuosity aortic arch is stable. No pneumothorax. Mild bilateral pleural effusions. Mild fissural thickening and bilateral pulmonary interstitial and alveolar infiltrates likely edema. Superimposed pneumonia is not excluded. IMPRESSION: Probable congestive heart failure with cardiomegaly, pulmonary edema and opacities at the lung bases, and mild pleural effusions. Superimposed lower lobe pneumonia is not excluded. Electronically signed by: Suzanne Sawyer MD (04/13/2021 1:05 AM) [facility] [place]IGNED BY: SUZANNE SAWYER MD DATE: 04/13/21 010 CC: ASTON HESTER MD; SAMMI DRAPER MD ~MTH0 0 Heart Score: C/O Chest Pain: Yes HEART Score for Chest Pain: HEART Score for Chest Pain Response (Comments) Value History Highly Suspicious [address] Depression 2 Age > 65 2 Risk Factors >3 Risk Factors or Hx CAD 2 Troponin < Normal Limit 0 Total 8 Risk Factors: Risk Factors: DM, Current or recent (<one month) smoker, HTN, HLP, family history of CAD, obesity. Risk Scores: Score 0 - 3: 2.5% MACE over next 6 weeks - Discharge Home Score 4 - 6: 20.3% MACE over next 6 weeks - Admit for Clinical Observation Score 7 - 10: 72.7% MACE over next 6 weeks - Early Invasive Strategies Course & Med Decision Making: Course & Med Decision Making Pertinent Labs and Imaging studies reviewed. (See chart for details) Will start diuresis with Lasix 40 mg IV. Restrict fluids. Admit for further diuresis and evaluation. Consider cardiology consult. Discussed presentation, testing and t.x plan with Dr. Amaya - Admit to Tele with Cardiology consult. 0400 Awaiting room placement per Nursing boiler house supervisor, wants rapid COVID result before giving room assignment. Impression: 1. Hx. Hypoxia in [place] 2. CHF-acute diastolic dysfuction and pulmonary edema exacerbation -BNP 13 068 3. Anemia. Hemoglobin 12.9. 4. Elevated D-dimer 1.79 5. Hypomagnesia 1.6 6. Generalized deconditioning and dilatation 7. Diabetes 8. Ischemic cardiomyopathy 9. Expressive aphasia and right-sided hemiparesis 10. History of aspiration pneumonitis and pneumonia [] Dragon Disclaimer: Dragon Disclaimer: This electronic medical record was generated, in whole or in part, using a voice recognition dictation system. Departure Departure: Referrals: SAMMI DRAPER MD (PCP) Sukh Disclaimer This chart was dictated in whole or in part using Voice Recognition software in a busy, high-work load, and often noisy Emergency Department environment. It may contain unintended and wholly unrecognized errors or omissions. Dragon Disclaimer This chart was dictated in whole or in part using Voice Recognition software in a busy, high-work load, and often noisy Emergency Department environment. It may contain unintended and wholly unrecognized errors or omissions. ASTON HESTER MD Apr 12, 2021 23:59
[2021-04-13] MEDS ORDERED: IV RINGERS SOLUTION,LACTATED 1,000 ML IV SCH (00:30)
--- NOTE | 2021-04-13 01:07 | RAD ---
AP chest x-ray HISTORY: Hypoxia. COMPARISON: Chest x-ray January 22, 2021 FINDINGS: Cardiac megaly stable. Tortuosity aortic arch is stable. No pneumothorax. Mild bilateral pl eural effusions. Mild fissural thickening and bilateral pulmonary interstitial and alveolar infiltrat es likely edema. Superimposed pneumonia is not excluded. IMPRESSION: Probable congestive heart failure with cardiomegaly, pulmonary edema and opacities at the lung bases, and mild pleural effusions. Superimposed lower lobe pneumonia is not excluded. Electronically signed by: Aron Sawyer MD (04/13/2021 1:05 AM) [facility]
[2021-04-13 02:13] LABS: BGAS PH 7.41 (7.35-7.46)
[2021-04-13 02:20] LABS: BASO % 1 % (0-3); EOS # 0.1 x10^3/uL (0.0-0.7); EOS % 2 % (0-3); HEMATOCRIT 40.5 % (39.0-53.0); HEMOGLOBIN 12.9 g/dL (13.0-17.5); LYMPH # 1.7 x10^3/uL (1.0-4.8); LYMPH % 31 % (24-48); MEAN CORPUSCULAR HEMOGLOBIN 27 pg (25-35); MEAN CORPUSCULAR HGB CONC 32 g/dL (31-37); MEAN CORPUSCULAR VOLUME 86 fL (79-100); MONO # 0.3 x10^3/uL (0.0-1.1); MONO % 6 % (0-9); NEUT # 3.3 x10^3uL (1.8-7.7); NEUT % 61 % (31-73); PLATELET COUNT 199 x10^3/uL (140-400); RED BLOOD COUNT 4.73 x10^6/uL (4.30-5.70); RED CELL DISTRIBUTION WIDTH 20.8 % (11.5-14.5); WHITE BLOOD COUNT 5.3 x10^3/uL (4.0-11.0)
[2021-04-13 02:24] LABS: CALCIUM 8.7 mg/dL (8.5-10.1); CREATININE 1.2 mg/dL (0.7-1.3); GFR 72.9; POTASSIUM 4.3 mmol/L (3.5-5.1)
[2021-04-13 02:36] LABS: ALBUMIN 3.5 g/dL (3.4-5.0); DIRECT BILIRUBIN 0.7 mg/dL (0.0-0.2); MAGNESIUM 1.6 mg/dL (1.8-2.4); TOTAL BILIRUBIN 1.3 mg/dL (0.2-1.0); TOTAL PROTEIN 7.3 g/dL (6.4-8.2)
[2021-04-13] MEDS ORDERED: ONDANSETRON PF 4 MG/2 ML VIAL. IVP PRN (03:45)
[2021-04-13] MEDS ORDERED: ACETAMINOPHEN 325 MG TABLET PO PRN (03:45)
[2021-04-13] MEDS ORDERED: ANTI-COAG MONITOR BY PHARMACY. MC PRN (03:45)
[2021-04-13] MEDS ORDERED: FUROSEMIDE 40 MG/4 ML VIAL IVP ONE (04:00)
--- NOTE | 2021-04-13 05:07 | EKG ---
[address] [address] Test Date: 2021-04-12 Test Time: 23:30:09 Pat Name: ÁNGEL MICHEL Department: Room: Gender: M Complaint Investigator: LUCAS : 1955 Requested By: ASTON HESTER Order Number: [id number] Reading MD: Measurements Intervals [place] Rate: 82 P: 37 IA: 192 QRS: -87 QRSD: 176 T: 70 QT: 436 QTc: 513 Interpretive Statements SINUS RHYTHM ABNORMAL LEFT AXIS DEVIATION LOW LIMB LEAD VOLTAGE RIGHT BUNDLE BRANCH BLOCK RVH WITH REPOLARIZATION ABNORMALITY QRS(T) CONTOUR ABNORMALITY CONSISTENT WITH ANTERIOR INFARCT AGE UNDETERMINED CONSISTENT WITH INFERIOR INFARCT PROBABLY OLD ABNORMAL ECG
--- NOTE | 2021-04-13 05:07 | EKG ---
[address] [address] Test Date: 2021-04-13 Test Time: 03:57:10 Pat Name: ÁNGEL MICHEL Department: Room: Gender: M Director Targeted Marketing: LUCAS : 1955 Requested By: ASTON HESTER Order Number: [id number] Reading MD: Measurements Intervals [place] Rate: 75 P: [place]: QRS: 219 QRSD: 130 T: 95 QT: 402 QTc: 452 Interpretive Statements IRREGULAR RHYTHM, NO P-WAVE FOUND ABNORMAL RIGHT SUPERIOR AXIS DEVIATION LOW LIMB LEAD VOLTAGE RIGHT BUNDLE BRANCH BLOCK CONSIDER RIGHT VENTRICULAR HYPERTROPHY QRS(T) CONTOUR ABNORMALITY CONSISTENT WITH ANTEROLATERAL INFARCT POSSIBLY RECENT CONSISTENT WITH INFERIOR INFARCT POSSIBLY RECENT ST-T ELEVATION, CONSIDER ACUTE ANTERIOR INFARCT
--- NOTE | 2021-04-13 05:35 | NUR ---
Admitted in stable condition via cart from ED; Sats 100% on room air, respirations even and unlabored; right sided weakness and upper extremity contractures noted (residual from CVA); patient monitor shows NSR without ectopy; expressive aphasia and cognitive defecits apparent; siderails up x2, call hart in reach.
[2021-04-13 05:47] LABS: BACTERIA,URINE 0 /HPF (0-FEW); BILIRUBIN,URINE SMALL (NEG); CLARITY,URINE CLEAR; COLOR,URINE YELLOW; GLUCOSE,URINE NEG (NEG); NITRITE,URINE NEG (NEG); RBC,URINE 0 /HPF (0-2); SQUAMOUS EPITHELIAL CELL,UR MOD /LPF; WBC,URINE RARE /HPF (0-4)
[2021-04-13 05:48] LABS: AMORPHOUS SEDIMENT,UR PRESENT /HPF
[2021-04-13 06:34] VITALS: BP 107/81
--- NOTE | 2021-04-13 06:42 | NUR ---
it was busy in the ER and was not able to see this pt.
[2021-04-13] MEDS ORDERED: IPRATRPIUM/ALBUTEROL 0.5/2.5MG 3 ML NEBU. NEB SCH (08:00)
[2021-04-13] MEDS ORDERED: APIXABAN 5 MG TABLET. PO SCH ×2 (09:00)
[2021-04-13] MEDS: MAGNESIUM HYDROXIDE 2,400 MG/30 ML ORAL.SUSP. PO SCH (10:13)
[2021-04-13 11:02] VITALS: BP 117/79
[2021-04-13] MEDS: IPRATROPIUM/ALBUTEROL 20/100mcg/INH INHALER. INH SCH ×3 (12:00→21:33)
--- NOTE | 2021-04-13 14:35 | PDOC2 ---
CONSULT DOS: DATE: 04/13/21 TIME: 14:28 Reason for Consult: Heart failure Referring Physician: Dr. Amaya Chief Complaint Shortness of breath Source: Chart review, Patient Problem List Problems Medical Problems: (1) CHF (congestive heart failure) Status: Acute History of Present Illness The patient is a 66-year-old male resident of a local residential who reportedly had increasing shortness of breath and decreased O2 saturation. He was transferred to the emergency room and a work-up included a chest x-ray that showed cardiomegaly with probable pulmonary edema. EKG showed a sinus rhythm with a right bundle branch block and nonspecific ST-T wave changes. Initial troponin was negative and he has had negative troponins down x3. His D-dimer was mildly elevated at 1.79. Previous work-up for mildly elevated D-dimer in December showed a normal CT scan of the chest with no PEs. The patient has been treated with diuresis and is doing better. He has a history of a severe cardiomyopathy. Echocardiogram in August of this year showed an ejection fraction of 25%. Additionally he has a history of hypertension, hyperlipidemia, chronic kidney disease, diabetes mellitus and a CVA with residual right-sided weakness. This morning he appears to be in no acute distress. Cardiovascular: CAD, CHF, HTN, hyperipidemia Pulmonary: COPD CENTRAL NERVOUS SYSTEM: CVA Renal/: Chronic renal insuff Endocrine: Diabetes Family History: Hypertension Smoke: No ALCOHOL: none Current Medications Current Medications Lactated Ringer's 1,000 ml @ 100 mls/hr Q10H IV Last administered on 04/13/21at 02:23; Start 04/13/21 at 00:30; Stop 04/13/21 at 10:29; Status DC Furosemide (Lasix) 40 mg 1X ONCE IVP Last administered on 04/13/21at 04:00; Start 04/13/21 at 04:00; Stop 04/13/21 at 04:01; Status DC Apixaban (Eliquis) 5 mg BID PO Last administered on 04/13/21at 10:13; Start 04/13/21 at 09:00 Info (Anti-Coagulation Monitoring By Pharmacy) 1 each PRN DAILY PRN MC PER PROTOCOL; Start 04/13/21 at 03:45 Ondansetron HCl (Zofran) 4 mg PRN Q4HRS PRN IVP NAUSEA/VOMITING; Start 04/13/21 at 03:45; Stop 04/14/21 at 03:44 Acetaminophen (Tylenol) 650 mg PRN Q4HRS PRN PO FEVER > 100.3'F; Start 04/13/21 at 03:45; Stop 04/14/21 at 03:44 Albuterol/ Ipratropium (Duoneb) 3 ml RTQID NEB ; Start 04/13/21 at 08:00; Stop 04/13/21 at 09:37; Status DC Apixaban (Eliquis) 5 mg BID PO ; Start 04/13/21 at 09:00; Status UNV Magnesium Hydroxide (Milk Of Magnesia) 2,400 mg DAILY PO Last administered on 04/13/21at 10:13; Start 04/13/21 at 09:00 Albuterol/ Ipratropium (Combivent Respimat 20-100 Mcg) 1 puff RTQID INH ; Start 04/13/21 at 12:00 Active Scripts Active Reported Multiple Vitamin (Multivitamin With Minerals) 1 Each Tablet 1 Tab PO DAILY LAST DOSE GIVEN: DATE: TIME: NEXT DOSE DUE: DATE: TIME: Zoloft (Sertraline Hcl) 50 Mg Tablet 75 Mg PO DAILY LAST DOSE GIVEN: DATE: TIME: NEXT DOSE DUE: DATE: TIME: Protonix (Pantoprazole Sodium) 20 Mg Tablet.dr 20 Mg PO HS LAST DOSE GIVEN: DATE: TIME: NEXT DOSE DUE: DATE: TIME: Novolog Flexpen (Insulin Aspart) 100 Unit/1 Ml Insuln.pen 8 Unit SQ TIDWMEALS Hold if blood sugar is <110 LAST DOSE GIVEN: DATE: TIME: NEXT DOSE DUE: DATE: TIME: Metformin Hcl 1,000 Mg Tablet 1,000 Mg PO BID LAST DOSE GIVEN: DATE: TIME: NEXT DOSE DUE: DATE: TIME: Magnesium Oxide 400 Mg Tablet 400 Mg PO BID LAST DOSE GIVEN: DATE: TIME: NEXT DOSE DUE: DATE: TIME: Levemir (Insulin Detemir) 100 Unit/1 Ml Vial 10 Unit SQ HS LAST DOSE GIVEN: DATE: TIME: NEXT DOSE DUE: DATE: TIME: Furosemide 40 Mg Tablet 40 Mg PO DAILY Hold if SBP <100 or HR <60 LAST DOSE GIVEN: DATE: TIME: NEXT DOSE DUE: DATE: TIME: Ferrous Sulfate 325 Mg Tablet 325 Mg PO BID LAST DOSE GIVEN: DATE: TIME: NEXT DOSE DUE: DATE: TIME: Eliquis (Apixaban) 5 Mg Tablet 5 Mg PO BID LAST DOSE GIVEN: DATE: TIME: NEXT DOSE DUE: DATE: TIME: Carvedilol 12.5 Mg Tablet 12.5 Mg PO BID Hold for HR less than 60 or SBP less than 100/60 LAST DOSE GIVEN: DATE: TIME: NEXT DOSE DUE: DATE: TIME: Breo Ellipta 100-25 Mcg Inh (Fluticasone/Vilanterol) 1 Each Aer.pow.ba 1 Puff IH DAILY Rinse mouth after use LAST DOSE GIVEN: DATE: TIME: NEXT DOSE DUE: DATE: TIME: Atorvastatin Calcium 40 Mg Tablet 40 Mg PO QHS LAST DOSE GIVEN: DATE: TIME: NEXT DOSE DUE: DATE: TIME: Amlodipine Besylate 10 Mg Tablet 10 Mg PO DAILY LAST DOSE GIVEN: DATE: TIME: NEXT DOSE DUE: DATE: TIME: Allergies: Coded Allergies: No Known Drug Allergies (Unverified , 05/28/17) Respiratory: YES: Shortness of breath General: mild distress Lungs: Other (Decreased breath sounds) Heart: Regular rate Abdomen: Normal bowel sounds VITALS Vital Signs Date Time Temp Pulse Resp B/P (MAP) Pulse Ox O2 Delivery O2 Flow Rate FiO2 04/13/21 11:02 98.1 75 18 117/79 (92) 97 Nasal Cannula 2.0 Labs Laboratory Tests Test 04/13/21 01:50 04/13/21 01:55 04/13/21 02:35 04/13/21 03:58 Blood Gas pH 7.41 (7.35-7.46) Blood Gas PCO2 43 mmHg (35-46) Blood Gas PO2 75 mmHg (80-100) Blood Gas HCO3 28 mmol/L (21-28) Arterial Bld O2 Saturation (Calc) 95 % (92-99) FiO2 28 % White Blood Count 5.3 x10^3/uL (4.0-11.0) Red Blood Count 4.73 x10^6/uL (4.30-5.70) Hemoglobin 12.9 g/dL (13.0-17.5) Hematocrit 40.5 % (39.0-53.0) Mean Corpuscular Volume 86 fL (79-100) Mean Corpuscular Hemoglobin 27 pg (25-35) Mean Corpuscular Hemoglobin Concent 32 g/dL (31-37) Red Cell Distribution Width 20.8 % (11.5-14.5) Platelet Count 199 x10^3/uL (140-400) Neutrophils (%) (Auto) 61 % (31-73) Lymphocytes (%) (Auto) 31 % (24-48) Monocytes (%) (Auto) 6 % (0-9) Eosinophils (%) (Auto) 2 % (0-3) Basophils (%) (Auto) 1 % (0-3) Neutrophils # (Auto) 3.3 x10^3uL (1.8-7.7) Lymphocytes # (Auto) 1.7 x10^3/uL (1.0-4.8) Monocytes # (Auto) 0.3 x10^3/uL (0.0-1.1) Eosinophils # (Auto) 0.1 x10^3/uL (0.0-0.7) Basophils # (Auto) 0.0 x10^3/uL (0.0-0.2) Prothrombin Time 13.1 SEC (9.4-11.4) Prothromb Time International Ratio 1.3 (0.9-1.1) Activated Partial Thromboplast Time 28 SEC (23-33) D-Dimer (Meli) 1.79 mg/L (0.00-0.50) Sodium Level 144 mmol/L (136-145) Potassium Level 4.3 mmol/L (3.5-5.1) Chloride Level 106 mmol/L (98-107) Carbon Dioxide Level 32 mmol/L (21-32) Anion Gap 6 (6-14) Blood Urea Nitrogen 16 mg/dL (8-26) Creatinine 1.2 mg/dL (0.7-1.3) Estimated GFR (Cockcroft-Gault) 72.9 Glucose Level 116 mg/dL (70-99) Calcium Level 8.7 mg/dL (8.5-10.1) Magnesium Level 1.6 mg/dL (1.8-2.4) Total Bilirubin 1.3 mg/dL (0.2-1.0) Direct Bilirubin 0.7 mg/dL (0.0-0.2) Aspartate Amino Transf (AST/SGOT) 27 U/L (15-37) Alanine Aminotransferase (ALT/SGPT) 29 U/L (16-63) Alkaline Phosphatase 152 U/L (46-116) Creatine Kinase 118 U/L (39-308) Troponin I Quantitative < 0.017 ng/mL (0-0.055) NL-Mlv-B-Type Natriuretic Peptide 09793 pg/mL (0-124) Total Protein 7.3 g/dL (6.4-8.2) Albumin 3.5 g/dL (3.4-5.0) Lipase 61 U/L (73-393) Thyroid Stimulating Hormone (TSH) 1.346 uIU/mL (0.358-3.740) Coronavirus (COVID-19)(PCR) Negative (NEGATIVE) SARS-CoV-2 Antigen (Rapid) Negative (NEGATIVE) Test 04/13/21 05:23 04/13/21 06:58 04/13/21 07:36 04/13/21 13:00 Urine Collection Type Unknown Urine Color Yellow Urine Clarity Clear Urine pH 5.0 Urine Specific [place] 1.020 Urine Protein 30 mg/dl (NEG-TRACE) Urine Glucose (UA) Neg mg/dL (NEG) Urine Ketones (Stick) 15 mg/dL (NEG) Urine Blood Neg (NEG) Urine Nitrite Neg (NEG) Urine Bilirubin Small (NEG) Urine Urobilinogen Dipstick 2.0 mg/dL (0.2 mg/dL) Urine Leukocyte Esterase Neg (NEG) Urine RBC 0 /HPF (0-2) Urine WBC Rare /HPF (0-4) Urine Squamous Epithelial Cells Mod /LPF Urine Amorphous Sediment Present /HPF Urine Bacteria 0 /HPF (0-FEW) Troponin I Quantitative < 0.017 ng/mL (0-0.055) < 0.017 ng/mL (0-0.055) Glucose (Fingerstick) 95 mg/dL (70-99) Images Chest x-ray shows cardiomegaly with probable pulmonary edema. Assessment/Plan 1. Acute on chronic systolic heart failure. As noted above patient has an ejection fraction of 25%. We will continue baseline medications and further diuresis. We will attempt to obtain further old records. Troponin levels have been normal x3. Of note the patient also has an elevated D-dimer at 1.79 but has a history of mild elevations in D-dimer with negative CT scans for PEs. 2. Hypertension. Patient blood pressure is under better control. We will continue present treatment. 3. Chronic kidney disease. We will continue to monitor labs. 4. Hyperlipidemia. We will continue present medications and check morning lab. 5. Diabetes mellitus. Continue present treatment as per the primary service. 6. History of a CVA with continued right-sided weakness. IRAIS SANTANA MD Apr 13, 2021 14:35
[2021-04-13 15:25] VITALS: BP 119/78
[2021-04-13] MEDS: POTASSIUM CHLORIDE 20 MEQ TABLET.ER. PO SCH (15:31)
[2021-04-13] MEDS: FUROSEMIDE 40 MG/4 ML VIAL IVP SCH (15:31)
[2021-04-13] MEDS: INSULIN LISPRO 300 UNITS/3 ML VIAL. SQ SCH (17:00)
--- NOTE | 2021-04-13 17:16 | HP ---
ADMIT DATE: 04/13/2021 HISTORY OF PRESENT ILLNESS: The patient is a 66-year-old -[place] male patient who is resident at [facility] since 09/11/2020 and who was brought to the Emergency Room with hypoxia. When he arrived to the Emergency Room, his oxygen saturation was 98%. He has extensive medical history including acute on chronic respiratory failure, episodes of hypoxia, he is normally on 3 liters of oxygen via nasal cannula; CVA with right-sided hemiplegia, aphasia and dysphagia; marked fixed flexion contracture of the right upper and right lower extremity. He is also known to have hyperlipidemia, chronic obstructive pulmonary disease and he was extensively investigated in the Emergency Room and has had an EKG, showed that he was in a regular rate and rhythm. Overall, morphology that appears to be atrial fibrillation with right bundle-branch block and inferior wall changes. The chest x-ray showed probable congestive heart failure with cardiomegaly, pulmonary edema and opacity in the lung bases, mild pleural effusion, superimposed lower lobe pneumonia is not excluded. His lab work showed that his white cell count was normal. Blood gases also showed that pH was normal at 7.41, pCO2 of 43, pO2 of 75, bicarbonate 28 and oxygen saturation was 95%. His prothrombin time, INR and APTT were normal. D-dimer was slightly elevated and his chemistry showed mild hypomagnesemia, otherwise most of his other lab works are within normal range. His first set of cardiac enzymes showed that his troponin was less than 0.07; however, beta-natriuretic peptide was extremely high at 13,060. His urinalysis was essentially unremarkable and his coronavirus PCR negative. The patient was admitted with diagnosis of acute on chronic congestive heart failure, mild hypomagnesemia, elevated D-dimer, type 2 diabetes mellitus, expressive aphasia with right-sided hemiplegia. He was treated with IV Lasix and was admitted, continued most of his other medication. 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 Does not really give useful information. 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 PAST SURGICAL HISTORY: Unremarkable. ALLERGIES: He has no known drug allergies. FAMILY HISTORY: Noncontributory. SOCIAL HISTORY: He is currently a resident at [facility]. He does not smoke. Drinks alcohol occasionally. Never used any drugs. MEDICATIONS: He is currently on the following medications: He is on ferrous sulfate 325 mg twice a day, apixaban 5 mg twice a day, atorvastatin calcium 40 mg at bedtime, carvedilol 12.5 mg twice a day, amlodipine 10 mg once a day, sertraline 75 mg once a day, furosemide 40 mg once a day, Breo Ellipta 1 puff once a day, magnesium oxide 400 mg twice a day, Protonix 40 mg once a day, metformin 1000 mg twice a day. He is on NovoLog FlexPen 8 units 3 times a day before meals and Levemir 10 units at bedtime, multivitamin one tablet once a day. PHYSICAL EXAMINATION: GENERAL: On arrival to the Emergency Room, he was somewhat tachypneic, hypoxic, pale. No jaundice, cyanosis, no lymphadenopathy, no thyromegaly, no jugular venous distention. No limb edema. VITAL SIGNS: His heart rate was 96, blood pressure was 115/43, temperature was 97.8, respiratory rate was 20 and oxygen saturation was 96% on 2 liters of oxygen. HEAD, EYES, EARS, NOSE, AND THROAT: Normocephalic, atraumatic. NECK: Supple. HEART: Showed normal first and second heart sounds. No gallop, rub or murmur. CHEST: Shows central trachea, equal bilateral chest expansion, air entry, vesicular breath sounds. I could not appreciate any crepitation or rhonchi. ABDOMEN: Markedly distended, soft, nontender, no guarding or rigidity. No organomegaly. All hernial orifice intact. Bowel sounds normal. NEUROLOGIC: The patient is awake, alert; however, he has right-sided hemiplegia with fixed flexion contracture of the right upper extremity, has aphasia. He is mostly bedbound, wheelchair bound. LABORATORY DATA: On arrival showed a white cell count 5300, hemoglobin 12.9, hematocrit 40, MCV 86 and platelet count of 199,000. His chemistry showed a serum sodium 144, potassium 4.3, chloride 106, bicarbonate 32, anion gap of 6, BUN 16, creatinine 1.2. Estimated GFR was 73 mL per minute. His glucose was 116, calcium was 8.7, magnesium was 1.6. Total bilirubin, AST, ALT were normal. Alkaline phosphatase slightly elevated. CK was 118. Beta-natriuretic peptide was 13,060. Total protein was 7.3, albumin 3.5, lipase was 61. TSH was 1.346. First set of cardiac enzymes showed troponin to be less than 0.017. His prothrombin time and INR slightly elevated, APTT was normal at 28 and D-dimer was 1.79. Urinalysis showed the urine is yellow, clear with a pH of 5, specific gravity 1.020. There was small amount of protein. The urine was negative for glucose, ketones, there was blood, negative for nitrite, negative for leukocyte esterase, 0 rbc's, rare wbc's and no bacteria. ASSESSMENT AND PLAN: The patient was admitted with acute on chronic congestive heart failure, was treated with IV Lasix. 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 We will reconcile all his medication and also continue with IV Lasix and we have consulted the [employer] [facility] to assist with his management. VIOLETTA DR: Duglas TID: [id number]
[2021-04-13] MEDS: metFORMIN 500 MG TABLET PO SCH (17:51)
--- NOTE | 2021-04-13 18:29 | NUR ---
Nursing note Pt has been calm and cooperative for this nurse and has been compliant with medications and cares.
[2021-04-13 18:44] VITALS: BP 108/78
[2021-04-13] MEDS: BUDESONIDE 0.5 MG/2 ML NEBU NEB SCH ×2 (20:43→21:29)
[2021-04-13] MEDS: ALBUTEROL SULFATE 2.5 MG/3 ML NEBU. NEB SCH ×2 (20:44→21:29)
[2021-04-13] MEDS: MAGNESIUM OXIDE 400 MG TABLET PO SCH (21:00)
[2021-04-13] MEDS: APIXABAN 5 MG TABLET. PO SCH (21:29)
[2021-04-13] MEDS: CARVEDILOL 12.5 MG TABLET PO SCH (21:29)
[2021-04-13] MEDS: FERROUS SULFATE 325 MG TABLET. PO SCH (21:30)
[2021-04-13] MEDS: ATORVASTATIN CALCIUM 20 MG TABLET PO SCH (21:30)
[2021-04-13] MEDS: PANTOPRAZOLE 40 MG TABLET. PO SCH (21:30)
[2021-04-13] MEDS: INSULIN GLARGINE SYRINGE. SQ SCH (21:32)
[2021-04-13 23:00] VITALS: BP 109/74
[2021-04-14] MEDS: ALBUTEROL SULFATE 2.5 MG/3 ML NEBU. NEB SCH ×3 (05:03→16:00)
[2021-04-14 07:00] VITALS: BP 112/74
[2021-04-14 07:24] LABS: ALBUMIN 3.2 g/dL (3.4-5.0); ALBUMIN/GLOBULIN RATIO 0.8 (1.0-1.7); CALCIUM 8.5 mg/dL (8.5-10.1); CREATININE 1.1 mg/dL (0.7-1.3); GFR 80.5; POTASSIUM 4.1 mmol/L (3.5-5.1); TOTAL BILIRUBIN 1.2 mg/dL (0.2-1.0)
[2021-04-14] MEDS: IPRATROPIUM/ALBUTEROL 20/100mcg/INH INHALER. INH SCH ×3 (08:00→20:34)
[2021-04-14] MEDS: INSULIN LISPRO 300 UNITS/3 ML VIAL. SQ SCH ×2 (08:00→16:42)
--- NOTE | 2021-04-14 08:49 | PDOC ---
CARDIO Progress Notes Date & Time Date of Service DATE: 04/14/21 TIME: 08:48 Time of Evaluation 08:48 Subjective Notes No chest pain, palpitations. Breathing improved. Vitals Vitals Vital Signs Date Time Temp Pulse Resp B/P (MAP) Pulse Ox O2 Delivery O2 Flow Rate FiO2 04/14/21 07:00 98.4 82 16 112/74 (87) 98 Nasal Cannula 3.0 Weight Weight [ ] Input and Output I.O. Intake and Output 04/14/21 07:00 Intake Total 600 ml Balance 600 ml Intake Oral 600 ml # Voids 1 Laboratory Labs Laboratory Tests Test 04/13/21 01:50 04/13/21 01:55 04/13/21 02:35 04/13/21 03:58 Blood Gas pH 7.41 (7.35-7.46) Blood Gas PCO2 43 mmHg (35-46) Blood Gas PO2 75 mmHg (80-100) Blood Gas HCO3 28 mmol/L (21-28) Arterial Bld O2 Saturation (Calc) 95 % (92-99) FiO2 28 % White Blood Count 5.3 x10^3/uL (4.0-11.0) Red Blood Count 4.73 x10^6/uL (4.30-5.70) Hemoglobin 12.9 g/dL (13.0-17.5) Hematocrit 40.5 % (39.0-53.0) Mean Corpuscular Volume 86 fL (79-100) Mean Corpuscular Hemoglobin 27 pg (25-35) Mean Corpuscular Hemoglobin Concent 32 g/dL (31-37) Red Cell Distribution Width 20.8 % (11.5-14.5) Platelet Count 199 x10^3/uL (140-400) Neutrophils (%) (Auto) 61 % (31-73) Lymphocytes (%) (Auto) 31 % (24-48) Monocytes (%) (Auto) 6 % (0-9) Eosinophils (%) (Auto) 2 % (0-3) Basophils (%) (Auto) 1 % (0-3) Neutrophils # (Auto) 3.3 x10^3uL (1.8-7.7) Lymphocytes # (Auto) 1.7 x10^3/uL (1.0-4.8) Monocytes # (Auto) 0.3 x10^3/uL (0.0-1.1) Eosinophils # (Auto) 0.1 x10^3/uL (0.0-0.7) Basophils # (Auto) 0.0 x10^3/uL (0.0-0.2) Prothrombin Time 13.1 SEC (9.4-11.4) Prothromb Time International Ratio 1.3 (0.9-1.1) Activated Partial Thromboplast Time 28 SEC (23-33) D-Dimer (Meli) 1.79 mg/L (0.00-0.50) Sodium Level 144 mmol/L (136-145) Potassium Level 4.3 mmol/L (3.5-5.1) Chloride Level 106 mmol/L (98-107) Carbon Dioxide Level 32 mmol/L (21-32) Anion Gap 6 (6-14) Blood Urea Nitrogen 16 mg/dL (8-26) Creatinine 1.2 mg/dL (0.7-1.3) Estimated GFR (Cockcroft-Gault) 72.9 Glucose Level 116 mg/dL (70-99) Calcium Level 8.7 mg/dL (8.5-10.1) Magnesium Level 1.6 mg/dL (1.8-2.4) Total Bilirubin 1.3 mg/dL (0.2-1.0) Direct Bilirubin 0.7 mg/dL (0.0-0.2) Aspartate Amino Transf (AST/SGOT) 27 U/L (15-37) Alanine Aminotransferase (ALT/SGPT) 29 U/L (16-63) Alkaline Phosphatase 152 U/L (46-116) Creatine Kinase 118 U/L (39-308) Troponin I Quantitative < 0.017 ng/mL (0-0.055) RS-Cpr-O-Type Natriuretic Peptide 50704 pg/mL (0-124) Total Protein 7.3 g/dL (6.4-8.2) Albumin 3.5 g/dL (3.4-5.0) Lipase 61 U/L (73-393) Thyroid Stimulating Hormone (TSH) 1.346 uIU/mL (0.358-3.740) Coronavirus (COVID-19)(PCR) Negative (NEGATIVE) SARS-CoV-2 Antigen (Rapid) Negative (NEGATIVE) Test 04/13/21 05:23 04/13/21 06:58 04/13/21 07:36 04/13/21 13:00 Urine Collection Type Unknown Urine Color Yellow Urine Clarity Clear Urine pH 5.0 Urine Specific [place] 1.020 Urine Protein 30 mg/dl (NEG-TRACE) Urine Glucose (UA) Neg mg/dL (NEG) Urine Ketones (Stick) 15 mg/dL (NEG) Urine Blood Neg (NEG) Urine Nitrite Neg (NEG) Urine Bilirubin Small (NEG) Urine Urobilinogen Dipstick 2.0 mg/dL (0.2 mg/dL) Urine Leukocyte Esterase Neg (NEG) Urine RBC 0 /HPF (0-2) Urine WBC Rare /HPF (0-4) Urine Squamous Epithelial Cells Mod /LPF Urine Amorphous Sediment Present /HPF Urine Bacteria 0 /HPF (0-FEW) Troponin I Quantitative < 0.017 ng/mL (0-0.055) < 0.017 ng/mL (0-0.055) Glucose (Fingerstick) 95 mg/dL (70-99) Test 04/13/21 16:59 04/14/21 06:37 04/14/21 07:12 Glucose (Fingerstick) 91 mg/dL (70-99) 81 mg/dL (70-99) Sodium Level 143 mmol/L (136-145) Potassium Level 4.1 mmol/L (3.5-5.1) Chloride Level 107 mmol/L (98-107) Carbon Dioxide Level 28 mmol/L (21-32) Anion Gap 8 (6-14) Blood Urea Nitrogen 18 mg/dL (8-26) Creatinine 1.1 mg/dL (0.7-1.3) Estimated GFR (Cockcroft-Gault) 80.5 BUN/Creatinine Ratio 16 (6-20) Glucose Level 96 mg/dL (70-99) Calcium Level 8.5 mg/dL (8.5-10.1) Magnesium Level 1.6 mg/dL (1.8-2.4) Total Bilirubin 1.2 mg/dL (0.2-1.0) Aspartate Amino Transf (AST/SGOT) 25 U/L (15-37) Alanine Aminotransferase (ALT/SGPT) 24 U/L (16-63) Alkaline Phosphatase 134 U/L (46-116) JP-Gme-F-Type Natriuretic Peptide 29319 pg/mL (0-124) Total Protein 7.0 g/dL (6.4-8.2) Albumin 3.2 g/dL (3.4-5.0) Albumin/Globulin Ratio 0.8 (1.0-1.7) Physical Exams HEENT: Neck Supple W Full Motion Chest: Symmetric Lungs: Other (diminished bases) Heart: RRR (tele SR) Abdomen: Soft N/T Extremities: No Edema, Other (right-sided hemiplegia) Neurology: alert, follow commands, other (some expressive aphasia ) Assessment Assessment 1. Acute on chronic respiratory failure secondary to a/c CHF 2. Acute on chronic systolic CHF; Improved s/p IV diuresis 3. Presumed NICM/ICM; Echo 09/19 with LVEF 25%, which was unchanged from previous echo in 2016 4. PAFIB; on Eliquis for stroke prophylaxis. EKG shows SR with RBBB. presently SR on tele 5. Hypertension; controlled 6. Hyperlipidemia; statin 7. Diabetes, II 8. CKD; Cr stable 9. H/o CVA with right-sided hemiplegia Recommendations Lasix therapy Replace Mg Continue Coreg Discontinue amlodipine to all blood pressure room for addition of ACEi for HF optimization Secondary prevention measures Supportive care JOSE ELIAS BRISCOE APRN Apr 14, 2021 08:49
[2021-04-14] MEDS ORDERED: amLODIPine BESYLATE 10 MG TABLET PO SCH (09:00)
[2021-04-14] MEDS ORDERED: NON FORMULARY ITEM (Fluticasone/Vilanterol (Breo Ellipta 100-25 Mcg Inh) 1 PUFF) IH SCH (09:00)
[2021-04-14] MEDS ORDERED: MAGNESIUM SULFATE 2GM 50 ML IV ONE (09:00)
[2021-04-14] MEDS: MAGNESIUM OXIDE 400 MG TABLET PO SCH ×2 (09:00→21:00)
[2021-04-14] MEDS: SERTRALINE 25 MG TABLET. PO SCH (10:05)
[2021-04-14] MEDS: APIXABAN 5 MG TABLET. PO SCH ×2 (10:05→20:34)
[2021-04-14] MEDS: MULTIVITAMIN with MINERAL TABLET. PO SCH (10:05)
[2021-04-14] MEDS: POTASSIUM CHLORIDE 20 MEQ TABLET.ER. PO SCH (10:05)
[2021-04-14] MEDS: CARVEDILOL 12.5 MG TABLET PO SCH ×2 (10:06→20:39)
[2021-04-14] MEDS: metFORMIN 500 MG TABLET PO SCH ×2 (10:06→16:46)
[2021-04-14] MEDS: MAGNESIUM HYDROXIDE 2,400 MG/30 ML ORAL.SUSP. PO SCH (10:07)
[2021-04-14] MEDS: FUROSEMIDE 40 MG/4 ML VIAL IVP SCH (10:07)
[2021-04-14] MEDS: FERROUS SULFATE 325 MG TABLET. PO SCH ×2 (10:07→20:34)
[2021-04-14] MEDS: LISINOPRIL 20 MG TABLET PO SCH (10:15)
[2021-04-14] MEDS: BUDESONIDE 0.5 MG/2 ML NEBU NEB SCH ×2 (11:04→20:34)
[2021-04-14 11:24] VITALS: BP 114/77
[2021-04-14] MEDS ORDERED: FUROSEMIDE 40 MG/4 ML VIAL IVP ONE (13:30)
--- NOTE | 2021-04-14 14:27 | RAD ---
XR CHEST 1V History: Reason: worsening sob and hypoxia / Spl. Instructions: / History: Comparison: April 13, 2021 Findings: Small bilateral pleural effusions, unchanged. Diffuse interstitial thickening. Patchy bibasilar opaci ties. Enlarged cardiac size, unchanged. No pneumothorax. Glenohumeral DJD. Impression: 1. Stable appearance of the chest compared to prior. Electronically signed by: Yoandy Harris DO (04/14/2021 2:25 PM) [id number]
[2021-04-14 14:59] LABS: BASO % 1 % (0-3); EOS # 0.1 x10^3/uL (0.0-0.7); EOS % 2 % (0-3); HEMATOCRIT 35.6 % (39.0-53.0); HEMOGLOBIN 11.6 g/dL (13.0-17.5); LYMPH # 1.3 x10^3/uL (1.0-4.8); LYMPH % 29 % (24-48); MEAN CORPUSCULAR HEMOGLOBIN 28 pg (25-35); MEAN CORPUSCULAR HGB CONC 33 g/dL (31-37); MEAN CORPUSCULAR VOLUME 86 fL (79-100); MONO # 0.3 x10^3/uL (0.0-1.1); MONO % 6 % (0-9); NEUT # 2.9 x10^3uL (1.8-7.7); NEUT % 63 % (31-73); PLATELET COUNT 167 x10^3/uL (140-400); RED BLOOD COUNT 4.16 x10^6/uL (4.30-5.70); RED CELL DISTRIBUTION WIDTH 20.7 % (11.5-14.5); WHITE BLOOD COUNT 4.5 x10^3/uL (4.0-11.0)
[2021-04-14 15:11] VITALS: BP 100/62
[2021-04-14 18:29] LABS: ANISOCYTOSIS SLIGHT; OVALOCYTES FEW; PLT ESTIMATE ADEQUATE (ADEQUATE)
[2021-04-14 20:20] VITALS: BP 112/74
[2021-04-14] MEDS: PANTOPRAZOLE 40 MG TABLET. PO SCH (20:34)
[2021-04-14] MEDS: ATORVASTATIN CALCIUM 20 MG TABLET PO SCH (21:00)
[2021-04-14] MEDS: INSULIN GLARGINE SYRINGE. SQ SCH (21:00)
--- NOTE | 2021-04-14 21:21 | NUR ---
Held patient night time Insulin. Patient Blood sugar is at 79mg/dL and patient did not eat any of his dinner
[2021-04-14 23:00] VITALS: BP 98/63
--- NOTE | 2021-04-14 23:06 | PN ---
DATE: 04/14/2021 SUBJECTIVE: The patient is resting, propped up in bed, clearly tachypneic, although he denied any chest pain, he did complain of shortness of breath. PHYSICAL EXAMINATION: GENERAL: When I examined him, there was no pallor, jaundice, cyanosis or thyromegaly. No jugular venous distention. No lower limb edema. VITAL SIGNS: His heart rate was 82, blood pressure is 114/77, temperature 97.7, respiratory rate was 20 and oxygen saturation was 97% on 2 liters of oxygen. HEAD, EYES, EARS, NOSE, AND THROAT: Normocephalic, atraumatic. NECK: Supple. HEART: Normal first and second heart sounds, no gallop or murmur. CHEST: Shows central trachea, equal bilateral expansion, air entry, vesicular breath sounds with bilateral basal crepitation, more so posteriorly. I could not appreciate any rhonchi. ABDOMEN: Distended, soft, nontender. NEUROLOGIC: He has left middle cerebral artery territory infarct with right-sided hemiplegia and aphasia. His intake was 500, no output was recorded. LABORATORY DATA: This morning showed a serum sodium 143, potassium 4.1, chloride 107, bicarbonate 28, anion gap of 8, BUN 18, creatinine 1.1. Estimated GFR was 80 mL per minute. His glucose was 96, calcium was 8.5, magnesium was 1.6. Total bilirubin, AST, ALT were normal. Alkaline phosphatase slightly elevated. His beta natriuretic peptide was 14,500, total protein 7, albumin was 3.2. ASSESSMENT: 1. Acute on chronic hypoxic respiratory failure. 2. Acute on chronic congestive heart failure. 3. Hypertension. 4. Hyperlipidemia. 5. Chronic kidney disease. 6. Type 2 diabetes mellitus. 7. 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 The patient continued to be fluid overloaded. PLAN: I will treat him with another dose of Lasix this afternoon and tomorrow morning and repeat his chest x-ray and decide the further management accordingly. MAC/AJAY DR: Duglas TID: [id number]
[2021-04-15 07:10] LABS: CALCIUM 7.9 mg/dL (8.5-10.1); GFR 89.9; POTASSIUM 3.5 mmol/L (3.5-5.1)
[2021-04-15] MEDS: INSULIN LISPRO 300 UNITS/3 ML VIAL. SQ SCH ×2 (08:00→12:00)
[2021-04-15] MEDS: MAGNESIUM OXIDE 400 MG TABLET PO SCH (09:00)
--- NOTE | 2021-04-15 09:04 | PDOC ---
CARDIO Progress Notes Date & Time Date of Service DATE: 04/15/21 TIME: 09:03 Time of Evaluation 09:03 Subjective Notes No chest pain, dizziness. Breathing improved Vitals Vitals Vital Signs Date Time Temp Pulse Resp B/P (MAP) Pulse Ox O2 Delivery O2 Flow Rate FiO2 04/14/21 23:00 98.5 70 18 98/63 (75) 96 Nasal Cannula 2.0 Weight Weight [ ] Input and Output I.O. Intake and Output 04/15/21 07:00 Intake Total 1030 ml Balance 1030 ml Intake Oral 1030 ml # Voids 3 # Bowel Movements 1 Laboratory Labs Laboratory Tests Test 04/13/21 13:00 04/13/21 16:59 04/14/21 06:37 04/14/21 07:12 Troponin I Quantitative < 0.017 ng/mL (0-0.055) Glucose (Fingerstick) 91 mg/dL (70-99) 81 mg/dL (70-99) Sodium Level 143 mmol/L (136-145) Potassium Level 4.1 mmol/L (3.5-5.1) Chloride Level 107 mmol/L (98-107) Carbon Dioxide Level 28 mmol/L (21-32) Anion Gap 8 (6-14) Blood Urea Nitrogen 18 mg/dL (8-26) Creatinine 1.1 mg/dL (0.7-1.3) Estimated GFR (Cockcroft-Gault) 80.5 BUN/Creatinine Ratio 16 (6-20) Glucose Level 96 mg/dL (70-99) Calcium Level 8.5 mg/dL (8.5-10.1) Magnesium Level 1.6 mg/dL (1.8-2.4) Total Bilirubin 1.2 mg/dL (0.2-1.0) Aspartate Amino Transf (AST/SGOT) 25 U/L (15-37) Alanine Aminotransferase (ALT/SGPT) 24 U/L (16-63) Alkaline Phosphatase 134 U/L (46-116) XS-Ykp-P-Type Natriuretic Peptide 28911 pg/mL (0-124) Total Protein 7.0 g/dL (6.4-8.2) Albumin 3.2 g/dL (3.4-5.0) Albumin/Globulin Ratio 0.8 (1.0-1.7) Triglycerides Level 73 mg/dL (0-150) Cholesterol Level 112 mg/dL (0-200) LDL Cholesterol, Calculated 69 mg/dL (0-100) VLDL Cholesterol, Calculated 14 mg/dL (0-40) Non-HDL Cholesterol Calculated 83 mg/dL (0-129) HDL Cholesterol 29 mg/dL (40-60) Cholesterol/HDL Ratio 3.0 Test 04/14/21 11:56 04/14/21 14:20 04/14/21 16:20 04/14/21 21:01 Glucose (Fingerstick) 109 mg/dL (70-99) 109 mg/dL (70-99) 79 mg/dL (70-99) White Blood Count 4.5 x10^3/uL (4.0-11.0) Red Blood Count 4.16 x10^6/uL (4.30-5.70) Hemoglobin 11.6 g/dL (13.0-17.5) Hematocrit 35.6 % (39.0-53.0) Mean Corpuscular Volume 86 fL (79-100) Mean Corpuscular Hemoglobin 28 pg (25-35) Mean Corpuscular Hemoglobin Concent 33 g/dL (31-37) Red Cell Distribution Width 20.7 % (11.5-14.5) Platelet Count 167 x10^3/uL (140-400) Neutrophils (%) (Auto) 63 % (31-73) Lymphocytes (%) (Auto) 29 % (24-48) Monocytes (%) (Auto) 6 % (0-9) Eosinophils (%) (Auto) 2 % (0-3) Basophils (%) (Auto) 1 % (0-3) Neutrophils # (Auto) 2.9 x10^3uL (1.8-7.7) Lymphocytes # (Auto) 1.3 x10^3/uL (1.0-4.8) Monocytes # (Auto) 0.3 x10^3/uL (0.0-1.1) Eosinophils # (Auto) 0.1 x10^3/uL (0.0-0.7) Basophils # (Auto) 0.0 x10^3/uL (0.0-0.2) Platelet Estimate Adequate (ADEQUATE) Anisocytosis Slight Ovalocytes Few Test 04/15/21 06:40 04/15/21 07:43 Sodium Level 145 mmol/L (136-145) Potassium Level 3.5 mmol/L (3.5-5.1) Chloride Level 108 mmol/L (98-107) Carbon Dioxide Level 29 mmol/L (21-32) Anion Gap 8 (6-14) Blood Urea Nitrogen 18 mg/dL (8-26) Creatinine 1.0 mg/dL (0.7-1.3) Estimated GFR (Cockcroft-Gault) 89.9 Glucose Level 84 mg/dL (70-99) Calcium Level 7.9 mg/dL (8.5-10.1) Glucose (Fingerstick) 75 mg/dL (70-99) Physical Exams HEENT: Neck Supple W Full Motion Chest: Symmetric Lungs: Other (diminished bases, fine expiratory wheeze) Heart: RRR (tele SR) Abdomen: Soft N/T Extremities: No Edema, Other (right-sided hemiplegia) Neurology: alert, follow commands, other (some expressive aphasia ) Assessment Assessment 1. Acute on chronic respiratory failure secondary to a/c CHF 2. Acute on chronic systolic CHF; Improved s/p IV diuresis 3. Presumed NICM/ICM; Echo 09/19 with LVEF 25%, which was unchanged from previous echo in 2017 4. PAFIB; on Eliquis for stroke prophylaxis. EKG shows SR with RBBB. presently SR on tele 5. Hypertension; low end 6. Hyperlipidemia; statin 7. Diabetes, II 8. CKD; Cr stable 9. H/o CVA with right-sided hemiplegia Recommendations Lasix therapy HF optimization Continue Coreg unless significant wheezing noted Will decrease lisinopril with low end BP Secondary prevention measures Supportive care JOSE ELIAS BRISCOE APRN Apr 15, 2021 09:04
[2021-04-15] MEDS: BUDESONIDE 0.5 MG/2 ML NEBU NEB SCH (09:24)
[2021-04-15] MEDS: LISINOPRIL 20 MG TABLET PO SCH (09:52)
[2021-04-15] MEDS: SERTRALINE 25 MG TABLET. PO SCH (09:52)
[2021-04-15] MEDS: MULTIVITAMIN with MINERAL TABLET. PO SCH (09:52)
[2021-04-15] MEDS: metFORMIN 500 MG TABLET PO SCH (09:53)
[2021-04-15] MEDS: POTASSIUM CHLORIDE 20 MEQ TABLET.ER. PO SCH (09:53)
[2021-04-15] MEDS: APIXABAN 5 MG TABLET. PO SCH (09:53)
[2021-04-15] MEDS: CARVEDILOL 12.5 MG TABLET PO SCH (09:53)
[2021-04-15] MEDS: FUROSEMIDE 40 MG/4 ML VIAL IVP SCH (09:53)
[2021-04-15] MEDS: MAGNESIUM HYDROXIDE 2,400 MG/30 ML ORAL.SUSP. PO SCH (09:54)
[2021-04-15] MEDS: FERROUS SULFATE 325 MG TABLET. PO SCH (09:54)
[2021-04-15] MEDS: IPRATROPIUM/ALBUTEROL 20/100mcg/INH INHALER. INH SCH ×2 (09:54→12:06)
[2021-04-15 11:19] VITALS: BP 105/57
--- NOTE | 2021-04-15 16:47 | NUR ---
Discharge Note Patient stable when [facility] arrived for transport at 1400. Patient continues of home 2L of oxygen, eating and drinking well. Patient denies pain, breathing regulated with oxygen sats of 07%. Report called to MARCELLA Haji at [phone].
--- NOTE | 2021-04-15 22:46 | PN ---
DATE: 04/15/2021 SUBJECTIVE: The patient is a 66-year-old -[place] male patient, a resident at [facility] who was admitted with hypoxia. Extensive evaluation in the emergency room showed that he was in heart failure with bilateral pleural effusion. He was diagnosed with acute on chronic hypoxic respiratory failure secondary to acute on chronic systolic congestive heart failure, mild hypomagnesemia, elevated D-dimer and type 2 diabetes mellitus. He was treated with IV Lasix and did actually very well. PHYSICAL EXAMINATION: GENERAL: When I saw him this afternoon, he was resting slightly propped up in bed, in no apparent distress. He was slightly pale, but no jaundice, cyanosis, no lymphadenopathy, no thyromegaly, no jugular venous distention. No limb edema. VITAL SIGNS: His heart rate was 83, blood pressure is 105/57, temperature was 97.9, respiratory rate was 18 and oxygen saturation was 98% on 2 liters of oxygen by nasal cannula. HEAD, EYES, EARS, NOSE, AND THROAT: Normocephalic, atraumatic. NECK: Supple. HEART: Normal first and second heart sounds, no gallop or murmur. CHEST: Clear to auscultation. No crepitation or rhonchi anteriorly. He has absent breath sounds posteriorly on the right more than left. ABDOMEN: Slightly distended, soft, nontender. NEUROLOGIC: He was sleepy, but arousable. All cranial nerves intact. He has right-sided hemiplegia and aphasia. His intake was 600, no output was recorded. LABORATORY DATA: Labs drawn this morning showed his serum sodium to be 145, potassium 3.5, chloride 108, bicarbonate 29, anion gap of 8, BUN 18, creatinine 1, estimated GFR was 90 mL per minute. His glucose was 84, calcium was 7.9. His coronavirus by PCR was negative. Urinalysis essentially unremarkable. ASSESSMENT AND PLAN: The patient was discharged back to [facility] to continue on lisinopril 10 mg once a day, apixaban 5 mg twice a day, atorvastatin calcium 40 mg at bedtime, carvedilol 12.5 mg twice a day, ferrous sulfate 325 mg twice a day, Breo Ellipta 1 puff daily, furosemide 40 mg daily, NovoLog FlexPen 8 units 3 times a day with meals and Levemir insulin 10 units at bedtime, magnesium oxide 400 mg twice a day, metformin 1000 mg twice a day, multivitamin with mineral 1 tablet once a day, Protonix 20 mg once a day and sertraline was 75 mg once a day. FINAL DISCHARGE DIAGNOSES: 1. Acute on chronic hypoxic respiratory failure. 2. Acute on chronic systolic congestive heart failure, presumed nonischemic cardiomyopathy with ejection fraction of only 25%, paroxysmal atrial fibrillation, on Eliquis for stroke prevention. 3. Hypertension. 4. Hyperlipidemia. 5. Type 2 diabetes mellitus, well controlled. 6. Chronic kidney disease. 7. 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 SCOUT DR: Duglas TID: [id number]
[2021-04-16] MEDS ORDERED: LISINOPRIL 10 MG TABLET PO SCH (09:00)
== END 2021-04-15 14:00 | DRG 291 ==
LOC: ER 23:23 → 1 SOUTH 04-13 03:36
PROVIDERS: ADMIT Internal Medicine; ATTEND Internal Medicine
DX: I13.0 Hypertensive heart and chronic kidney disease with heart failure and stage 1 through stage 4 chronic kidney disease, or unspecified chronic kidney disease (principal); J96.21 Acute and chronic respiratory failure with hypoxia; I50.43 Acute on chronic combined systolic (congestive) and diastolic (congestive) heart failure; I69.351 Hemiplegia and hemiparesis following cerebral infarction affecting right dominant side; E78.00 Pure hypercholesterolemia, unspecified; I25.10 Atherosclerotic heart disease of native coronary artery without angina pectoris; D64.9 Anemia, unspecified; E83.42 Hypomagnesemia; I25.5 Ischemic cardiomyopathy; I69.320 Aphasia following cerebral infarction; J44.9 Chronic obstructive pulmonary disease, unspecified; N18.9 Chronic kidney disease, unspecified; I48.91 Unspecified atrial fibrillation; I45.10 Unspecified right bundle-branch block; E78.5 Hyperlipidemia, unspecified; E11.22 Type 2 diabetes mellitus with diabetic chronic kidney disease; F32.9 Major depressive disorder, single episode, unspecified; K21.9 Gastro-esophageal reflux disease without esophagitis; Z99.81 Dependence on supplemental oxygen; Z82.49 Family history of ischemic heart disease and other diseases of the circulatory system; Z79.899 Other long term (current) drug therapy; Z79.4 Long term (current) use of insulin; Z79.01 Long term (current) use of anticoagulants; Z20.822 Contact with and (suspected) exposure to COVID-19
CPT/HCPCS: 36415; 71045; 80048; 80053; 80061; 80076; 81001; 82550; 82803; 82947; 83690; 83735; 83880; 84443; 84484; 85025; 85379; 85610; 85730; 87426; 93005; 94640; 94760; 96361; 96374; J1815; J1940; J3475; J7120; U0003; 99285-25; J7613